=== PATIENT | male | born 1965 | race American Indian/Alaskan Native ===

== ENCOUNTER 2017-01-18 03:05 | Inpatient (IN) | payer BC, MEDICAID ==
[2017-01-18] MEDS ORDERED: NACL 0.9% 1000 ML IV ONE (03:30)
--- NOTE | 2017-01-18 04:05 | Emergency Department Report ---
HPI - General Chief Complaint: Fever Time Seen by Provider: 01/18/17 03:37 - HPI HPI: Room 22 The patient is a 51-year-old male presenting with a chief complaint of fever or weakness. The patient has a history of metastatic colon CA and last received chemotherapy 12/31/2016. Family states he was diagnosed with an abdominal abscess 01/10/2017. Today the patient found to be febrile with a temperature of 39.6C per . The patient appeared weak so she brought him into the emergency department for evaluation. There is been no history of nausea vomiting or diarrhea. There is no history of cough. The patient currently denies any complaints Location: [see above] Duration: [see above] Quality: [see above] Severity: [see above] Modifying factors: [see above] Context: [see above] Mode of transportation: [not driving] ED Past Medical Hx - Past Medical History Previous Medical History?: Yes Hx Liver Disease: Yes (LIVER METS) Hx of Cancer: Yes (Colon, Bone CA) - Surgical History Past Surgical History?: Yes - Family History Family history: no significant - Social History Smoking Status: Never Smoker Substance Use Type: Alcohol (none x May 2016) - Medications Home Medications: Home Medications Medication Instructions Recorded Confirmed Last Taken Type Pantoprazole [Protonix TAB] 40 mg PO QDAY #30 tablet 07/07/16 08/26/16 08/24/16 Rx Polyethylene Glycol 3350 [Miralax 17 gm PO QDAY #30 powd.pack 07/07/16 08/23/16 Unknown Rx 3350] Multivitamin with Iron 1 each PO DAILY #30 tablet 07/08/16 08/26/16 08/25/16 Rx [Multivitamins with Iron] HYDROcodone/APAP 10-325 [Faber 1 each PO Q6HR PRN 07/26/16 08/26/16 08/26/16 00: 30 History 10/325] Metoprolol [Lopressor TAB] 25 mg PO BID #60 tablet 08/08/16 08/26/16 08/25/16 20 :00 Rx HYDROcodone/APAP 5-325 [Faber 1 - 2 each PO Q4HR PRN #30 tablet 08/26/16 Unknown Rx 5/325] Ranitidine HCl [Zantac 150 MG TAB] 150 mg PO BID 08/26/16 08/26/16 08/25/16 History ED Review of Systems ROS: Stated complaint: WEAKNESS/CONFUSED Other details as noted in HPI Comment: All other systems reviewed and negative Constitutional: fever, weakness Eyes: denies: eye pain, eye discharge, vision change ENT: denies: ear pain, throat pain Respiratory: denies: cough, shortness of breath, wheezing Cardiovascular: denies: chest pain, palpitations Endocrine: no symptoms reported Gastrointestinal: abdominal pain. denies: nausea, vomiting, diarrhea Genitourinary: denies: urgency, dysuria Musculoskeletal: denies: back pain, joint swelling, arthralgia Skin: denies: rash, lesions Neurological: denies: headache, weakness, paresthesias Psychiatric: denies: anxiety, depression Hematological/Lymphatic: denies: easy bleeding, easy bruising Physical Exam - Physical Exam Vital Signs: Vital Signs 01/18/17 01/18/17 01/18/17 03:13 03:15 03:17 Temperature 99.0 F Pulse Rate 119 H 118 H 127 H Respiratory 26 H 24 16 Rate Blood Pressure 90/49 85/50 O2 Sat by Pulse 97 96 90 Oximetry 01/18/17 03:30 Temperature Pulse Rate 111 H Respiratory 21 Rate Blood Pressure 77/42 O2 Sat by Pulse 97 Oximetry Physical Exam: GENERAL: The patient is a thin-appearing male lying on stretcher not appearing to be in acute distress HEENT: Normocephalic. Atraumatic. Extraocular motions are intact. NECK: Supple. Trachea midline CHEST/LUNGS: Clear to auscultation. There is no respiratory distress noted. HEART/CARDIOVASCULAR: Regular. There is no tachycardia. There is no gallop rub or murmur. ABDOMEN: Abdomen is slightly tender in the left periphery. There were abdomen feels indurated possibly indicating hepatosplenomegaly. There is no rebound. Patient has normal bowel sounds. There is no abdominal distention. SKIN: There is no rash. There is no edema. There is no diaphoresis. NEURO: The patient is awake, alert, and oriented. The patient is cooperative. The patient has normal speech MUSCULOSKELETAL: There is no evidence of acute injury. ED Course Vital Signs 01/18/17 01/18/17 01/18/17 03:13 03:15 03:17 Temperature 99.0 F Pulse Rate 119 H 118 H 127 H Respiratory 26 H 24 16 Rate Blood Pressure 90/49 85/50 O2 Sat by Pulse 97 96 90 Oximetry 01/18/17 03:30 Temperature Pulse Rate 111 H Respiratory 21 Rate Blood Pressure 77/42 O2 Sat by Pulse 97 Oximetry ED Medical Decision Making - Lab Data Result diagrams: 01/18/17 03:30 01/18/17 03:30 Laboratory Tests 01/18/17 01/18/17 01/18/17 03:10 03:30 03:30 WBC 16.6 H RBC 3.27 L Hgb 9.1 L Hct 28.1 L MCV 86 MCH 28 MCHC 32 RDW 18.6 H Plt Count 307 Lymph % (Auto) Shovel Engineer [place] % (Auto) Shovel Engineer Eos % (Auto) Shovel Engineer Baso % (Auto) Shovel Engineer Lymph # Shovel Engineer [place] # Shovel Engineer Eos # Shovel Engineer Baso # Shovel Engineer Seg Neutrophils % Shovel Engineer Seg Neutrophils # Shovel Engineer Sodium 135 L Potassium 5.0 Chloride 90.0 L Carbon Dioxide 25 Anion Gap 25 BUN 25 H Creatinine 1.9 H Estimated GFR 45 BUN/Creatinine Ratio 13.15 Glucose 54 L POC Glucose 53 L Lactic Acid Calcium 10.9 H Total Bilirubin 1.50 H AST 109 H ALT 29 Alkaline Phosphatase 225 H Troponin T < 0.010 C-Reactive Protein 40.40 H Total Protein 8.2 Albumin 2.6 L Albumin/Globulin Ratio 0.5 Lipase 10 L 01/18/17 03:30 WBC RBC Hgb Hct MCV MCH MCHC RDW Plt Count Lymph % (Auto) [place] % (Auto) Eos % (Auto) Baso % (Auto) Lymph # [place] # Eos # Baso # Seg Neutrophils % Seg Neutrophils # Sodium Potassium Chloride Carbon Dioxide Anion Gap BUN Creatinine Estimated GFR BUN/Creatinine Ratio Glucose POC Glucose Lactic Acid 4.70 H* Calcium Total Bilirubin AST ALT Alkaline Phosphatase Troponin T C-Reactive Protein Total Protein Albumin Albumin/Globulin Ratio Lipase - Radiology Data Radiology results: image reviewed (chest x-ray, CT abdomen and pelvis) interpreted by me: Chest x-ray-no focal infiltrates, no pneumothorax - Differential Diagnosis sepsis, symptomatic anemia, neutropenic fever Critical care attestation.: If time is entered above; I have spent that time in minutes in the direct care of this critically ill patient, excluding procedure time. ED Disposition Clinical Impression: Colon cancer, Leukocytosis, Hypotension, Acute renal failure Disposition: OP ADMIT IP TO THIS HOSP Is pt being admited?: Yes Does the pt Need Aspirin: No Condition: Serious Referrals: PRIMARY CARE, [Primary Care Provider] - 3-5 Days Time of Disposition: 05:58 (awaiting CT abdomen and pelvis results)
[2017-01-18 04:13] LABS: Hematocrit 28.1 % (35.5-45.6); Hemoglobin 9.1 gm/dl (11.8-15.2); Mean Corpuscular HGB Conc 32 % (32-34); Mean Corpuscular Hemoglobin 28 pg (28-32); Mean Corpuscular Volume 86 fl (84-94); Platelet Count 307 K/mm3 (140-440); Red Blood Count 3.27 M/mm3 (3.65-5.03); Red Cell Distribution Width 18.6 % (13.2-15.2); White Blood Count 16.6 K/mm3 (4.5-11.0)
[2017-01-18 04:46] LABS: Alanine Aminotransferase 29 units/L (7-56); Albumin 2.6 g/dL (3.9-5); Albumin/Globulin Ratio 0.5 %; Alkaline Phosphatase 225 units/L (35-129); Anion Gap 25 mmol/L; BUN/Creatinine Ratio 13.15; Blood Urea Nitrogen 25 mg/dL (9-20); Calcium 10.9 mg/dL (8.4-10.2); Carbon Dioxide 25 mmol/L (22-30); Glucose 54 mg/dL (75-100); Lipase 10 units/L (13-60); Sodium 135 mmol/L (137-145); Total Protein 8.2 g/dL (6.3-8.2)
[2017-01-18] MEDS ORDERED: ZOSYN/NS 3.375GM/50ML 3.375 GM/50 ML BAG IV ONE (04:51)
[2017-01-18 05:49] LABS: LA REFLEX Y
[2017-01-18] MEDS ORDERED: LEVOPHED DRIP 4 MG/NS 250 ML 4 MG/250 ML BAG IV PRN (05:53)
--- NOTE | 2017-01-18 06:01 | Admit Criteria Form ---
Admission Criteria Documentation: HEMODYNAMIC INSTABILITY Clinical Indications for Inpatient Care (levelock/check or initial the applicable condition/criteria) Ongoing inpatient care may be indicated for hemodynamic instability as indicated by 1 or more of the following(1)(2)(3)(4)(10)(16)(17)(18)(19(32)(35): [X ]I) New hypotension [ ]II) Symptomatic Tachycardia or Bradycardia unresponsive to treatment (eg analgesia, fluids [ X]III) Inadequate perfusion as indicated by 1 or more of the following: [X ]a) Lactic acidosis, with lactic acid greater than 18 mg/dL (2 mmol /L) or base excess < -5mEq/L(36) [ ]b) New abnormal capillary refill (longer than 3 seconds) [ ]c) Altered mental status that is severe or persistent [ ]d) Reduced urine output [ ]lV) Orthostatic vital sign changes that are symptomatic and unresponsive to treatment (eg, fluids) (37)(38) [ ]V) Marked hemodynamic change from baseline (eg, SBP 20 mm Hg below patient' s usual pressure) [ ]Vl) IV inotropic or vasopressor medication required(39) Extended stay beyond goal length of stay for primary condition may be needed until ALL of the following are present(1)(2)(3)(4)(10)(16)(17): [ ]a) Heart rate > 60 and < 100 beats per minute or patient is clinically stable at current rate (eg, baseline) [ ]b) SBP >100 mm Hg and <160 mm Hg or patient is clinically stable at current pressure (eg, baseline) [ ]c) DBP greater than 50 mm Hg and less than 100 mm Hg or patient is clinically stable at current pressure (eg, baseline) [ ]d) Urine output greater than 0.5 mL/kg per hour [ ]e) Room air oxygen saturation 90% or greater or at baseline [ ]f) Orthostatic vital sign changes absent, asymptomatic, at baseline, or manageable at lower level of care[B] [ ]g) Medical comorbidities manageable at lower level of care The original [employer] content created by Adrianne Saba has been revised. The portions of the content which have been revised are identified through the use of italic text or in bold, and Adrianne Saba has neither reviewed nor approved the modified material. All other unmodified content is copyright [facility]. Please see references footnoted in the original [facility] edition 2017 Admission Criteria Met: Yes
[2017-01-18 06:13] LABS: Anisocytosis 1+; Basophils % (Manual) 0 % (0.0-1.8); Blastocytes % (Manual) 0 %; Diff Status Complete; Eosinophils % (Manual) 0 % (0.0-4.3); Platelet Estimate Consistent w Auto
[2017-01-18] MEDS ORDERED: D50W (25GM) IV ONE (06:15)
[2017-01-18] MEDS ORDERED: VANCOMYCIN/NS 1 GM/250 ML 1 GM/250 ML BAG IV ONE ×2 (06:16→09:00)
--- NOTE | 2017-01-18 06:42 | Cat Scan Report ---
FINAL REPORT PROCEDURE: CT ABDOMEN PELVIS WO CON TECHNIQUE: Computerized axial tomography of the abdomen and pelvis was performed without intravenous contrast. This study is performed without intravascular contrast material and its sensitivity for abdominal and pelvic pathology, including neoplasms, inflammation, abscess, free fluid, thrombosis, arterial dissection and infarction, is reduced compared with a contrast enhanced study. HISTORY: hypotension, left abd pain. h/o intra-abd abscess COMPARISON: 08/05/2016 FINDINGS: Visualized lower thorax: There are bilateral lower lobe infiltrates.. Liver: Liver is significantly enlarged and filled with metastatic tumors. The appearance is similar to the previous examination.. Spleen: Spleen is enlarged. No discrete mass is seen.. Gallbladder and biliary system: Normal. Pancreas: Normal. Adrenals: Normal. Kidneys: There is a 2 centimeters cyst in the right kidney. There are no kidney stones. There is no hydronephrosis.. GI tract: There is thickening of the stomach wall suggesting gastritis. There is no mass. There is moderate stool the colon. There is currently no active diverticulitis or colitis. 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 This extends laterally and posteriorly from the left colon at location of previously identified perforation. Largest diameter of the abscess cavity is 17 millimeters and contains air.. Lymph nodes and mesentery: Normal. Vasculature: Normal. Bladder: Normal. Reproductive organs: Prostate is unremarkable.. Peritoneum: There is no ascites or free air.. Musculoskeletal structures: There is a lytic lesion in the right sacral ala unchanged from prior study.. Other: There is a left inguinal hernia containing nodular densities which could be enlarged lymph nodes. The appearance is unchanged from prior study.. 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 This extends laterally and posteriorly from the left colon at location of previously identified perforation. Largest diameter of the abscess cavity is 17 millimeters and contains air. Liver is significantly enlarged and filled with metastatic tumors. The appearance is similar to the previous examination.. Spleen is enlarged. No discrete mass is seen.. There is a 2 centimeters cyst in the right kidney. There are no kidney stones. There is no hydronephrosis.. There is a lytic lesion in the right sacral ala unchanged from prior study.. There is a left inguinal hernia containing nodular densities which could be enlarged lymph nodes. The appearance is unchanged from prior study.. There are bilateral lower lobe pulmonary infiltrates..
[2017-01-18 07:06] LABS: Bilirubin,Urine NEG (Negative); Blood,Urine NEG (Negative); Ketones,Urine TR mg/dL (Negative); Leukocyte Esterase,Urine TR (Negative); Mucus,Urine FEW /HPF; Nitrite,Urine NEG (Negative)
--- NOTE | 2017-01-18 07:28 | History and Physical Report ---
History of Present Illness Date of examination: 01/18/17 Date of admission: 01/18/17 Chief complaint: Fever and weakness. History of present illness: Patient is a 51-year-old male with hx of Metastatic colon CA s/p Colon resection , on Chemotherapy with last chemo on 12/31/16 presenting with fever and weakness. Patient is accompanied by the informs me that he has progressively declined healthwise. Patient was recently seen in follow-up abdominal pain at [facility] on 01/10/2017 was diagnosed with an abdominal abscess there was no intervention done at that time, sure if any antibiotics was given to the patient and discharge. The informs me that she did not want them doing any procedure because she wanted his primary surgeon Dr. Reed asked to see her. Unfortunately has continued to have worsening weakness and fever at home which was recorded at 39.6 but a . The patient is severely weak unable to answer any question except muttering a few words. They deny any diarrhea, nausea, vomiting, chest pain, headaches, shortness of breath or cough. Abdominal pain still persists this at 3/10 in intensity with no aggravating factors. The patient has been unable to eat due to poor appetite for the last 1 week. On admission to the ER patient was noted to have a blood sugar of 53. Systolic blood pressure was also noted to be in the mid 80s. ROS Constitutional: Fever, fatigue or weight loss and weakness. Skin: No rash. Eyes: No recent vision problems or eye pain. ENT: No congestion, ear pain, or sore throat. Endocrine: No thyroid problems. Cardiovascular: No chest pain. Respiratory: No cough, shortness of breath, congestion, or wheezing. Gastrointestinal: positive abdominal pain, No nausea, vomiting, or diarrhea. Genitourinary: No dysuria. Musculoskeletal: No joint swelling. Neurologic: No seizures. Hematologic: No unusual bruising or bleeding. Psychiatric: No psychiatric problems, hallucinations or depression. All other systems reviewed and otherwise negative. Past History Past Medical History: cancer (colon), other Past Surgical History: Other (colon resection) Social history: . denies: alcohol abuse, prescription drug abuse Family history: no significant family history Medications and Allergies Allergies Allergy/AdvReac Type Severity Reaction Status Date / Time No Known Allergies Allergy Unverified 07/03/16 11:00 Home Medications Medication Instructions Recorded Confirmed Last Taken Type Pantoprazole [Protonix TAB] 40 mg PO QDAY #30 tablet 07/07/16 08/26/16 08/24/16 Rx Polyethylene Glycol 3350 [Miralax 17 gm PO QDAY #30 powd.pack 07/07/16 08/23/16 Unknown Rx 3350] Multivitamin with Iron 1 each PO DAILY #30 tablet 07/08/16 08/26/16 08/25/16 Rx [Multivitamins with Iron] HYDROcodone/APAP 10-325 [[place] 1 each PO Q6HR PRN 07/26/16 08/26/16 08/26/16 00: 30 History 10/325] Metoprolol [Lopressor TAB] 25 mg PO BID #60 tablet 08/08/16 08/26/16 08/25/16 20 :00 Rx HYDROcodone/APAP 5-325 [[place] 1 - 2 each PO Q4HR PRN #30 tablet 08/26/16 Unknown Rx 5/325] Ranitidine HCl [Zantac 150 MG TAB] 150 mg PO BID 08/26/16 08/26/16 08/25/16 History Active Meds: Active Medications Norepinephrine (Levophed Drip 4 Mg/Ns 250 Ml) 4 mg in 250 mls @ 7.5 mls/hr IV TITR PRN; Protocol; 2 MCG/MIN PRN Reason: hypotension Last Admin: 01/18/17 06:10 Dose: 2 mcg/min, 7.5 mls/hr Vancomycin HCl (Vancomycin/Ns 1 Gm/250 Ml) 1 gm in 250 mls @ 167.007 mls/hr IV ONCE ONE PRN Reason: Protocol Stop: 01/18/17 07:45 Exam - Physical Exam Narrative exam: VITAL SIGNS: Reviewed. GENERAL: The patient appeared lethargic, markedly cachectic normally developed. Vital signs as documented. HEAD: No signs of head trauma. Temporal wasting EYES: Pupils are equal. Extraocular motions intact. EARS: Hearing grossly intact. MOUTH: Oropharynx is normal. NECK: No adenopathy, no JVD. CHEST: Chest with clear breath sounds bilaterally. No wheezes, rales, or rhonchi. CARDIAC: Regular rate and rhythm. S1 and S2, without murmurs, gallops, or rubs. VASCULAR: No Edema. Peripheral pulses normal and equal in all extremities. ABDOMEN: Scaphoid, Soft, without detectable tenderness. No rebound or guarding, and no masses palpated. Bowel Sounds normal. MUSCULOSKELETAL: Good range of motion of all major joints. Extremities without clubbing, cyanosis or edema. NEUROLOGIC EXAM: Alert and oriented x 3. No focal sensory or strength deficits. Speech normal. Follows commands. PSYCHIATRIC: Mood normal. SKIN: No rash or lesions. - Constitutional Vitals: Temp Pulse Resp BP Pulse Ox 98.9 F 91 H 19 98/61 98 01/18/17 06:30 01/18/17 06:45 01/18/17 06:45 01/18/17 06:45 01/18/17 06:45 Results - Labs CBC & Chem 7: 01/18/17 03:30 01/18/17 03:30 Labs: Laboratory Last Values WBC 16.6 K/mm3 (4.5-11.0) H 01/18/17 03:30 RBC 3.27 M/mm3 (3.65-5.03) L 01/18/17 03:30 Hgb 9.1 gm/dl (11.8-15.2) L 01/18/17 03:30 Hct 28.1 % (35.5-45.6) L 01/18/17 03:30 MCV 86 fl (84-94) 01/18/17 03:30 MCH 28 pg (28-32) 01/18/17 03:30 MCHC 32 % (32-34) 01/18/17 03:30 RDW 18.6 % (13.2-15.2) H 01/18/17 03:30 Plt Count 307 K/mm3 (140-440) 01/18/17 03:30 Lymph % (Auto) Assistant Administrator 01/18/17 03:30 Garza % (Auto) Assistant Administrator 01/18/17 03:30 Eos % (Auto) Assistant Administrator 01/18/17 03:30 Baso % (Auto) Assistant Administrator 01/18/17 03:30 Lymph # Assistant Administrator 01/18/17 03:30 Garza # Assistant Administrator 01/18/17 03:30 Eos # Assistant Administrator 01/18/17 03:30 Baso # Assistant Administrator 01/18/17 03:30 Add Manual Diff Complete 01/18/17 03:30 Total Counted 100 01/18/17 03:30 Seg Neutrophils % Assistant Administrator 01/18/17 03:30 Seg Neuts % (Manual) 48.0 % (40.0-70.0) 01/18/17 03:30 Band Neutrophils % 16.0 % 01/18/17 03:30 Lymphocytes % (Manual) 12.0 % (13.4-35.0) L 01/18/17 03:30 Reactive Lymphs % (Man) 0 % 01/18/17 03:30 Monocytes % (Manual) 24.0 % (0.0-7.3) H 01/18/17 03:30 Eosinophils % (Manual) 0 % (0.0-4.3) 01/18/17 03:30 Basophils % (Manual) 0 % (0.0-1.8) 01/18/17 03:30 Metamyelocytes % 0 % 01/18/17 03:30 Myelocytes % 0 % 01/18/17 03:30 Promyelocytes % 0 % 01/18/17 03:30 Blast Cells % 0 % 01/18/17 03:30 Nucleated RBC % Not Reportable 01/18/17 03:30 Seg Neutrophils # Assistant Administrator 01/18/17 03:30 Seg Neutrophils # Man 8.0 K/mm3 (1.8-7.7) H 01/18/17 03:30 Band Neutrophils # 2.7 K/mm3 01/18/17 03:30 Lymphocytes # (Manual) 2.0 K/mm3 (1.2-5.4) 01/18/17 03:30 Abs React Lymphs (Man) 0.0 K/mm3 01/18/17 03:30 Monocytes # (Manual) 4.0 K/mm3 (0.0-0.8) H 01/18/17 03:30 Eosinophils # (Manual) 0.0 K/mm3 (0.0-0.4) 01/18/17 03:30 Basophils # (Manual) 0.0 K/mm3 (0.0-0.1) 01/18/17 03:30 Metamyelocytes # 0.0 K/mm3 01/18/17 03:30 Myelocytes # 0.0 K/mm3 01/18/17 03:30 Promyelocytes # 0.0 K/mm3 01/18/17 03:30 Blast Cells # 0.0 K/mm3 01/18/17 03:30 WBC Morphology Not Reportable 01/18/17 03:30 Hypersegmented Neuts Not Reportable 01/18/17 03:30 Hyposegmented Neuts Not Reportable 01/18/17 03:30 Hypogranular Neuts Not Reportable 01/18/17 03:30 Smudge Cells Not Reportable 01/18/17 03:30 Toxic Granulation Not Reportable 01/18/17 03:30 Toxic Vacuolation Not Reportable 01/18/17 03:30 Dohle Bodies Not Reportable 01/18/17 03:30 Pelger-Huet Anomaly Not Reportable 01/18/17 03:30 Reid Rods Not Reportable 01/18/17 03:30 Platelet Estimate Consistent w auto 01/18/17 03:30 Clumped Platelets Not Reportable 01/18/17 03:30 Plt Clumps, EDTA Not Reportable 01/18/17 03:30 Large Platelets Not Reportable 01/18/17 03:30 Giant Platelets Not Reportable 01/18/17 03:30 Platelet Satelliting Not Reportable 01/18/17 03:30 Plt Morphology Comment Not Reportable 01/18/17 03:30 RBC Morphology Not Reportable 01/18/17 03:30 Dimorphic RBCs Not Reportable 01/18/17 03:30 Polychromasia Not Reportable 01/18/17 03:30 Hypochromasia Not Reportable 01/18/17 03:30 Poikilocytosis Not Reportable 01/18/17 03:30 Anisocytosis 1+ 01/18/17 03:30 Microcytosis Not Reportable 01/18/17 03:30 Macrocytosis Not Reportable 01/18/17 03:30 Spherocytes Not Reportable 01/18/17 03:30 Pappenheimer Bodies Not Reportable 01/18/17 03:30 Sickle Cells Not Reportable 01/18/17 03:30 Target Cells Not Reportable 01/18/17 03:30 Tear Drop Cells Not Reportable 01/18/17 03:30 Ovalocytes Not Reportable 01/18/17 03:30 Helmet Cells Not Reportable 01/18/17 03:30 [place] Bodies Not Reportable 01/18/17 03:30 [place] Rings Not Reportable 01/18/17 03:30 [place] Cells Not Reportable 01/18/17 03:30 Bite Cells Not Reportable 01/18/17 03:30 Crenated Cell Not Reportable 01/18/17 03:30 Elliptocytes Not Reportable 01/18/17 03:30 Acanthocytes (Spur) Not Reportable 01/18/17 03:30 Rouleaux Not Reportable 01/18/17 03:30 Hemoglobin C Crystals Not Reportable 01/18/17 03:30 Schistocytes Not Reportable 01/18/17 03:30 Malaria parasites Not Reportable 01/18/17 03:30 Neal Bodies Not Reportable 01/18/17 03:30 Hem Pathologist Commnt No 01/18/17 03:30 Sodium 135 mmol/L (137-145) L 01/18/17 03:30 Potassium 5.0 mmol/L (3.6-5.0) 01/18/17 03:30 Chloride 90.0 mmol/L (98-107) L 01/18/17 03:30 Carbon Dioxide 25 mmol/L (22-30) 01/18/17 03:30 Anion Gap 25 mmol/L 01/18/17 03:30 BUN 25 mg/dL (9-20) H 01/18/17 03:30 Creatinine 1.9 mg/dL (0.8-1.5) H 01/18/17 03:30 Estimated GFR 45 ml/min 01/18/17 03:30 BUN/Creatinine Ratio 13.15 % 01/18/17 03:30 Glucose 54 mg/dL (75-100) L 01/18/17 03:30 POC Glucose 53 (70-105) L 01/18/17 03:10 Lactic Acid 4.70 mmol/L (0.7-2.0) H* 01/18/17 03:30 Calcium 10.9 mg/dL (8.4-10.2) H 01/18/17 03:30 Total Bilirubin 1.50 mg/dL (0.1-1.2) H 01/18/17 03:30 AST 109 units/L (5-40) H 01/18/17 03:30 ALT 29 units/L (7-56) 01/18/17 03:30 Alkaline Phosphatase 225 units/L (35-129) H 01/18/17 03:30 Troponin T < 0.010 ng/mL (0.00-0.029) 01/18/17 03:30 C-Reactive Protein 40.40 mg/dL (0.00-1.30) H 01/18/17 03:30 Total Protein 8.2 g/dL (6.3-8.2) 01/18/17 03:30 Albumin 2.6 g/dL (3.9-5) L 01/18/17 03:30 Albumin/Globulin Ratio 0.5 % 01/18/17 03:30 Lipase 10 units/L (13-60) L 01/18/17 03:30 Urine Color Delia (Yellow) 01/18/17 06:49 Urine Turbidity Clear (Clear) 01/18/17 06:49 Urine pH 5.0 (5.0-7.0) 01/18/17 06:49 Ur Specific [place] 1.025 (1.003-1.030) 01/18/17 06:49 Urine Protein 100 mg/dl mg/dL (Negative) 01/18/17 06:49 Urine Glucose (UA) 50 mg/dL (Negative) 01/18/17 06:49 Urine Ketones Tr mg/dL (Negative) 01/18/17 06:49 Urine Blood Neg (Negative) 01/18/17 06:49 Urine Nitrite Neg (Negative) 01/18/17 06:49 Urine Bilirubin Neg (Negative) 01/18/17 06:49 Urine Urobilinogen 2.0 mg/dL (<2.0) 01/18/17 06:49 Ur Leukocyte Esterase Tr (Negative) 01/18/17 06:49 Urine WBC (Auto) 11.0 /HPF (0.0-6.0) H 01/18/17 06:49 Urine RBC (Auto) 4.0 /HPF (0.0-6.0) 01/18/17 06:49 U Epithel Cells (Auto) 1.0 /HPF (0-13.0) 01/18/17 06:49 Urine Mucus Few /HPF 01/18/17 06:49 Assessment and Plan Assessment and plan: Patient is a 51-year-old male with hx of Metastatic colon CA s/p Colon resection , on Chemotherapy with last chemo on 12/31/16 presenting with fever and weakness. Patient is accompanied by the informs me that he has progressively declined healthwise. Patient was recently seen in follow-up abdominal pain at [facility] on 01/10/2017 was diagnosed with an abdominal abscess there was no intervention done at that time, sure if any antibiotics was given to the patient and discharge. The informs me that she did not want them doing any procedure because she wanted his primary surgeon Dr. Reed asked to see her. Unfortunately has continued to have worsening weakness and fever at home which was recorded at 39.6 but a . The patient is severely weak unable to answer any question except muttering a few words. They deny any diarrhea, nausea, vomiting, chest pain, headaches, shortness of breath or cough. Abdominal pain still persists this at 3/10 in intensity with no aggravating factors. The patient has been unable to eat due to poor appetite for the last 1 week. On admission to the ER patient was noted to have a blood sugar of 53. Systolic blood pressure was also noted to be in the mid 80s. * Sepsis possible secondary to Abdominal Abscess, UTI * Septic Shock * Abdominal Abscess * Peritoneal irritation eval for Possible Peritonitis * Acute cystitis * Metastatic Colon Cancer * Acute Kidney Failure secondary vasomotor nephropathy baseline 0.5 today elevated to 1.9 * Dehydration * Anemia secondary to colon Ca * Hypoglycemia * Failure to thrive * Severe Protein calorie malnutrition * Poor PO intake * ?Sacral Abscess Plan * Admit patient to the intensive care unit, access patient's port for pressor infusion which has not even started * We'll give patient additional 2 L of fluid and start patient on maintenance D5 normal saline for better blood glucose control * Stat vancomycin and Zosyn, check blood culture, urine culture sputum cultures * Obtain pro-calcitonin if possible * Surgical consult, serial abdominal exam if abscess is worsening we'll consider also CT-guided drainage. * Template Clerk, hematology oncologist, and infectious diseases consult * Perez for adequate urinary output documentation if no improvement in renal status will obtain renal ultrasound and also nephrology input. * Pain control * If patient continues to have a poor by mouth intake may need insertion of NG tube for enteral feed * Obtain records from [facility] * Plan discussed with patient's sister who is a nurse and also with the patient' s spouse and the patient * DVT and GI prophylaxis The high probability of a clinically significant, sudden or life threatening deterioration of the [cardiovascula, GI, ID] system(s) required my full and direct attention, intervention and personal management. The aggregate critical care time was [40] minutes. This time is in addition to time spent performing reported procedures but includes the following: [x] Data Review and interpretation [x] Patient assessment and monitoring of vital signs [x] Documentation [x] Medication orders and management Advance Directives: Yes Plan of care discussed with patient/family: Yes
[2017-01-18] MEDS ORDERED: TYLENOL PO PRN (07:29)
[2017-01-18] MEDS ORDERED: VANCOMYCIN VIAL IV ONE (07:29)
[2017-01-18] MEDS ORDERED: NACL 0.9% 1000 ML 2,000 ML IV ONE (07:38)
[2017-01-18] MEDS ORDERED: VANCOMYCIN PHARMACY TO DOSE IV SCH (08:00)
[2017-01-18] MEDS ORDERED: BENADRYL ONE (09:16)
--- NOTE | 2017-01-18 09:50 | Event Note ---
Date: 01/18/17 This is an unfortunate 51 year old male s/p left colon resection and liver bx at [facility] by Dr. 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 The patient presents with hypotension, and an elevated WBC and is requiring pressor support , apparently he also has bone mets. This case represents advanced end stage/ terminal dz and there is nothing to offer surgically at this present time, consideration can be given to CT drainage, however the abcess is less than 3 cm and does not usually med requirements for CT drainage. A tragic case really, Hospice care really should be at least entertained althought the family and patient may not be ready for it given his young age. However, aggressive measures really represent futile care in my opinion. I have no idea if terminal care discussions have been carried out with the family by the Oncologist.
--- NOTE | 2017-01-18 09:59 | XRay Report ---
AP CHEST: HISTORY: Fever, sepsis Compared to 08/08/16. There is poor inspiration. Grossly, the lungs are clear. No pleural effusion or pneumothorax. Heart size is unremarkable. Right [id number] is in good position. IMPRESSION: Unremarkable AP chest.
[2017-01-18] MEDS: ZOSYN/NS 2.25 GM/50ML 2.25 GM/50 ML BAG IV SCH ×4 (11:09→23:39)
[2017-01-18] MEDS: MIRALAX 3350 PO SCH (11:22)
[2017-01-18] MEDS: D5NS 1,000 ML IV SCH (12:30)
[2017-01-18] MEDS ORDERED: ZOSYN/NS 4.5GM/100ML 4.5 GM/100 ML VIAL IV SCH (14:00)
[2017-01-18 14:35] LABS: ISTAT Base Excess 0; ISTAT HCO3 25.3; ISTAT PH 7.377 (7.35-7.45); ISTAT PO2 87 (80-105); ISTAT SO2 96; ISTAT TCO2 27
--- NOTE | 2017-01-18 16:18 | Consultation ---
History of Present Illness Consult date: 01/18/17 Requesting physician: NOHEMY KAUFFMAN Reason for consult: other (Severe Sepsis / Septic Shock) History of present illness: PULMONARY/CCM CONSULT NOTE Full dictation # [id number]) Please see dictated notes for full details Past History Past Medical History: cancer (colon), other Past Surgical History: Other (colon resection) Social history: . denies: alcohol abuse, prescription drug abuse Family history: no significant family history Medications and Allergies Allergies Allergy/AdvReac Type Severity Reaction Status Date / Time No Known Allergies Allergy Unverified 07/03/16 11:00 Home Medications Medication Instructions Recorded Confirmed Last Taken Type Pantoprazole [Protonix TAB] 40 mg PO QDAY #30 tablet 07/07/16 08/26/16 08/24/16 Rx Polyethylene Glycol 3350 [Miralax 17 gm PO QDAY #30 powd.pack 07/07/16 08/23/16 Unknown Rx 3350] Multivitamin with Iron 1 each PO DAILY #30 tablet 07/08/16 08/26/16 08/25/16 Rx [Multivitamins with Iron] HYDROcodone/APAP 10-325 [[place] 1 each PO Q6HR PRN 07/26/16 08/26/16 08/26/16 00: 30 History 10/325] Metoprolol [Lopressor TAB] 25 mg PO BID #60 tablet 08/08/16 08/26/16 08/25/16 20 :00 Rx HYDROcodone/APAP 5-325 [[place] 1 - 2 each PO Q4HR PRN #30 tablet 08/26/16 Unknown Rx 5/325] Ranitidine HCl [Zantac 150 MG TAB] 150 mg PO BID 08/26/16 08/26/16 08/25/16 History Active Meds: Active Medications Acetaminophen (Tylenol) 650 mg PO Q6H PRN PRN Reason: Pain, Mild (1-3) Hydromorphone HCl (Dilaudid) 0.25 mg IV Q4H PRN PRN Reason: Pain, Moderate (4-6) Norepinephrine (Levophed Drip 4 Mg/Ns 250 Ml) 4 mg in 250 mls @ 7.5 mls/hr IV TITR PRN; Protocol; 2 MCG/MIN PRN Reason: hypotension Last Titration: 01/18/17 07:10 Dose: 4 mcg/min, 15 mls/hr Dextrose/Sodium Chloride (D5ns) 1,000 mls @ 150 mls/hr IV DIRECT MIRIAM Piperacillin Sod/Tazobactam Sod (Zosyn/Ns 2.25 Gm/50ml) 2.25 gm in 50 mls @ 100 mls/hr IV Q6H [facility] Last Admin: 01/18/17 11:09 Dose: Not Given Vancomycin HCl 750 mg/ Sodium (Chloride) 265 mls @ 166.667 mls/hr IV Q24H [facility] Polyethylene Glycol (Miralax 3350) 17 gm PO QDAY [facility] Last Admin: 01/18/17 11:22 Dose: Not Given Vancomycin HCl (Vancomycin Pharmacy To Dose) 1 each IV PKCONSULT [facility] PRN Reason: Protocol Physical Examination Vital signs: Vital Signs Pulse Resp Pulse Ox 119 H 26 H 97 01/18/17 03:13 01/18/17 03:13 01/18/17 03:13 Results - Laboratory Findings CBC and BMP: 01/18/17 03:30 01/18/17 03:30 ABG POC ABG pH 7.377 (7.35-7.45) 01/18/17 14:25 POC ABG pCO2 43.0 (35-45) 01/18/17 14:25 POC ABG pO2 87 (80-105) 01/18/17 14:25 POC ABG HCO3 25.3 01/18/17 14:25 POC ABG Total CO2 27 01/18/17 14:25 POC ABG O2 Sat 96 01/18/17 14:25
--- NOTE | 2017-01-18 17:07 | Event Note ---
Date: 01/18/17 Pt seen, I have really nothing else to add, Hospice evaluation seems appropriate , is not present, patient's sister is in room at present speaking with Dr. Kowalski
[2017-01-19 04:34] LABS: Hematocrit 25.8 % (35.5-45.6); Hemoglobin 8.1 gm/dl (11.8-15.2); Mean Corpuscular HGB Conc 32 % (32-34); Mean Corpuscular Hemoglobin 27 pg (28-32); Mean Corpuscular Volume 87 fl (84-94); Platelet Count 248 K/mm3 (140-440); Red Blood Count 2.97 M/mm3 (3.65-5.03); Red Cell Distribution Width 19.6 % (13.2-15.2); White Blood Count 11.9 K/mm3 (4.5-11.0)
--- NOTE | 2017-01-19 04:38 | Consultation ---
CONSULTING PHYSICIAN: Dr. Pascal. REASON FOR CONSULTATION: Sepsis syndrome and hypotension. CHIEF COMPLAINT AND HISTORY OF PRESENT ILLNESS: The patient is a 51-year-old -[place] male with past medical history significant in this context for a diagnosis of metastatic colon cancer reportedly metastasized to the bone and the liver, came into the Emergency Room complaining of fever, weakness, generalized malaise. He apparently had been diagnosed with abdominal abscess, recently, according to his sister who is also in a medical professional I believe she is a nurse. He was seen at the [facility] and we were told that there was no need for surgical intervention, they were going to treat him with antibiotics for the abscess. He went home, but then again began to feel sick and was brought into the hospital here, he had a fever about 39.6 degrees centigrade according to his relatives. He was evaluated in the Emergency Room. He was amongst other things hypotensive. He was started on vasopressors in the form of Levophed, hence the reason for the consult. When I stopped by to see him, he was resting in bed peacefully. He denied any acute chest pains. He denied any cough or expectorations. Denies any abdominal pain that is uncontrolled. Denied any gross hematochezia. Denied any melena. This really is as much of the history of presentation as I have. He is not a current tobacco smoker. PAST MEDICAL HISTORY: Significant for metastatic colon cancer. PAST SURGICAL HISTORY: Status post colon resection. MEDICATIONS: He was on at the time I stopped by to see him, according to the medication administration record included the following: Tylenol 650 mg p.o. q. 6. hours p.r.n. mild pain and fever. Dilaudid 0.25 mg IV q. 4 hours p.r.n. moderate pain, Levophed drip had been going at 2 mcg per minute, Zosyn 2.25 grams IV q.6 hours, MiraLax 17 grams p.o. daily, vancomycin 750 mg IV daily. ALLERGIES: No known drug allergies. DIET: Thin gentleman, bordering on being cachectic since I have last seen him, he has lost about 10 pounds or more. FAMILY AND SOCIAL HISTORY: Lives in the community. No current alcohol, tobacco, or illicit drug use or abuse. He is . Family history otherwise noncontributory. REVIEW OF SYSTEMS: No loss of consciousness. No new onset seizures. No new onset focal weakness. No gross hematochezia or melena. No gross hematuria or dysuria. No hematemesis. No hemoptysis. He denies palpitations. Complete review of systems is obtained. Pertinent positives and/or negatives as in body of history above, otherwise they are noncontributory. PHYSICAL EXAMINATION: VITAL SIGNS: On examination at presentation, he had low grade fever of 99.0 Fahrenheit, pulse was 119, respiratory rate was 26, blood pressure was 90/49, oxygen sats were 96%, inspired oxygen concentration was not recorded, blood pressure dropped to low of about 77 systolics. HEAD, EYES, EARS, NOSE AND THROAT: Pupils are equal, round, about 2 mm, reactive to light. Extraocular muscle movements appeared intact. Oropharynx is a Mallampati #2 oropharynx with mild oropharyngeal pallor, grossly no palpable lymph nodes in the supraclavicular or submandibular lymph node chains. LUNGS: Auscultation of both lung angel significant only for diminished bibasilar air entry. No wheezing. HEART: Heart sounds 1 and 2 are heard. They were regular in rate and rhythm at the time of my evaluation. ABDOMEN: Soft. Bowel sounds are positive, but hypoactive, mildly tender in the epigastric. EXTREMITIES: Without overt digital clubbing, cyanosis or pedal edema. NEUROLOGIC: The exam was grossly nonfocal. LABORATORY DATA: From my review are as follows: Admission white cell count 16,600 with a hemoglobin of 9.1, hematocrit of 28.1 and platelet count of 307,000. No significant band forms reported. Arterial blood gas showed a pH of 7.38, pCO2 of 43, pO2 of 87; that was on 2 liters nasal cannula. Serum sodium was 135, potassium 5.0, chloride 90, bicarbonate 25, BUN 25, creatinine 1.9 and glucose was 53. Lactic acid level was 4.7, repeat lactate is down to 3.8. AST is up at 109, total bilirubin 1.5, heather phos ____. Otherwise, liver function tests essentially within normal limits. CRP is 40.4. Urinalysis, trace leukocyte esterase, 11 white cells per high power field. Blood cultures have no growth to date. Urine cultures are pending, that will be sent. Radiographic studies have been reviewed. I am pulling out the imaging I have reviewed the radiologist's interpretation. The main finding is on the CT of the abdomen and pelvis. 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 ASSESSMENT AND PLAN: We have an unfortunate middle-aged gentleman, who has metastatic cancer and his sister actually tells me that his oncologist has stopped chemotherapy and told him there is really nothing he can offer him at this point. From a respiratory standpoint, we will continue supplemental oxygen. Aspiration precautions will be maintained. We will follow him clinically. No acute indication for bronchodilators. From a cardiovascular standpoint, he is responding to volume resuscitation and being weaned off the Levophed. We will follow him clinically. We will target mean arterial pressures greater than or equal to about 60 to 65 mmHg. He will be placed on GI prophylaxis and aspiration precautions will be maintained. From an infectious disease standpoint, he has been pancultured. I will send urine cultures now and he is appropriately on broad-spectrum antibiotic therapy. Anti-infectives will ultimately be deescalated based on results of clinical and microbiologic data. Lactic acid level and CRP levels will be trended as necessary. I will leave it up to the surgeons to see if there is any indication for drainage procedure of any sort, but CT scan thankfully reports that the abscess cavity is actually getting smaller. From a GI and nutritional standpoint, oral nutrition will be the feeding modality of choice. Again, he is going to be on GI prophylaxis. From a [employer]IED [employer] standpoint, the exam is grossly nonfocal. No acute indication from neuro imaging. From a general and hospital healthcare maintenance standpoint, he is going to be on gastrointestinal and deep venous thrombosis prophylaxis. Flu and pneumonia vaccination will be per protocol. I have had a discussion with his sister and explained to her that they should please try and figure out what the patient would want for himself and make sure that substituted care is not given to him. The prognosis is poor and he needs to be made aware of this and make decisions regarding end of life care. They just listened, they will think about what I told; that would be the best way to describe their reply. Thank you very much for the consult Dr. Pascal. We will follow along. We will make further recommendations as picture progresses/becomes clearer. I should mention he has some areas of atelectasis in the bases of his lungs that apparently is a little bit better than the last CT scan we had here. He is critically ill on life-sustaining interventions including vasopressors at high risk for further deterioration including . We will observe him in the intensive care unit overnight. At this point, I have spent about 30 to 35 minutes of critical care time without overlap and excluding any procedural time that may be necessary. JOB# [id number] TJ/M[place]ISON
[2017-01-19 04:55] LABS: Alanine Aminotransferase 24 units/L (7-56); Albumin 2.1 g/dL (3.9-5); Albumin/Globulin Ratio 0.5 %; Alkaline Phosphatase 173 units/L (35-129); Anion Gap 21 mmol/L; BUN/Creatinine Ratio 17.77; Blood Urea Nitrogen 16 mg/dL (9-20); Calcium 9.4 mg/dL (8.4-10.2); Carbon Dioxide 21 mmol/L (22-30); Chloride 100.7 mmol/L (98-107); Glucose 85 mg/dL (75-100); Potassium 4.1 mmol/L (3.6-5.0); Sodium 139 mmol/L (137-145); Total Protein 6.6 g/dL (6.3-8.2)
[2017-01-19] MEDS: D5NS 1,000 ML IV SCH ×2 (08:13→18:04)
[2017-01-19] MEDS: ZOSYN/NS 2.25 GM/50ML 2.25 GM/50 ML BAG IV SCH (08:41)
[2017-01-19] MEDS: MIRALAX 3350 PO SCH (10:23)
[2017-01-19] MEDS ORDERED: VANCOMYCIN 750 MG in NACL 0.9% 250ML 250 ML IV SCH (11:00)
--- NOTE | 2017-01-19 15:04 | Consultation ---
History of Present Illness - Reason for Consult Consult date: 01/19/17 Septic Shock Requesting physician: NOHEMY KAUFFMAN - History of Present Illness Mr. Chavira is a 51-year-old man with colon cancer s/p colon resection and chemotherapy, last on . His course has been complicated by a colon perforation with abscess and a left perinephric fistula. He presented yesterday with weakness, hypotension and fever to > 102 [address] F. CXR was unremarkable. [address] abd/ pelv showed perinephric fistula and a smaller abscess at the colon. Blood and curine cultures were sent and broad spectrum antibiotics were started for possible septic shock. ID consultation is requested for management of septic shock and intra-abdominal abscess. Past History Past Medical History: cancer (colon), other Past Surgical History: Other (colon resection) Social history: . denies: alcohol abuse, prescription drug abuse Family history: no significant family history Medications and Allergies Allergies Allergy/AdvReac Type Severity Reaction Status Date / Time No Known Allergies Allergy Unverified 07/03/16 11:00 Home Medications Medication Instructions Recorded Confirmed Last Taken Type Pantoprazole [Protonix TAB] 40 mg PO QDAY #30 tablet 07/07/16 08/26/16 08/24/16 Rx Polyethylene Glycol 3350 [Miralax 17 gm PO QDAY #30 powd.pack 07/07/16 08/23/16 Unknown Rx 3350] Multivitamin with Iron 1 each PO DAILY #30 tablet 07/08/16 08/26/16 08/25/16 Rx [Multivitamins with Iron] HYDROcodone/APAP 10-325 [[place] 1 each PO Q6HR PRN 07/26/16 08/26/16 08/26/16 00: 30 History 10/325] Metoprolol [Lopressor TAB] 25 mg PO BID #60 tablet 08/08/16 08/26/16 08/25/16 20 :00 Rx HYDROcodone/APAP 5-325 [[place] 1 - 2 each PO Q4HR PRN #30 tablet 08/26/16 Unknown Rx 5/325] Ranitidine HCl [Zantac 150 MG TAB] 150 mg PO BID 08/26/16 08/26/16 08/25/16 History Active Meds: Active Medications Acetaminophen (Tylenol) 650 mg PO Q6H PRN PRN Reason: Pain, Mild (1-3) Hydromorphone HCl (Dilaudid) 0.25 mg IV Q4H PRN PRN Reason: Pain, Moderate (4-6) Norepinephrine (Levophed Drip 4 Mg/Ns 250 Ml) 4 mg in 250 mls @ 7.5 mls/hr IV TITR PRN; Protocol; 2 MCG/MIN PRN Reason: hypotension Last Titration: 01/18/17 07:10 Dose: 4 mcg/min, 15 mls/hr Dextrose/Sodium Chloride (D5ns) 1,000 mls @ 150 mls/hr IV DIRECT MIRIAM Last Admin: 01/19/17 08:13 Dose: 150 mls/hr Piperacillin Sod/Tazobactam Sod (Zosyn/Ns 4.5gm/100ml) 4.5 gm in 100 mls @ 200 mls/hr IV Q8HR MIRIAM Vancomycin HCl 750 mg/ Sodium (Chloride) 265 mls @ 166.667 mls/hr IV Q12HR MIRIAM Polyethylene Glycol (Miralax 3350) 17 gm PO QDAY MIRIAM Last Admin: 01/19/17 10:23 Dose: Not Given Vancomycin HCl (Vancomycin Pharmacy To Dose) 1 each IV PKCONSULT MIRIAM PRN Reason: Protocol Review of Systems All systems: negative Constitutional: fever, sweats, fatigue, weakness, no chills Cardiovascular: no chest pain, no palpitations, no shortness of breath Respiratory: no cough, no cough with sputum, no shortness of breath, no wheezing Gastrointestinal: abdominal pain, no nausea, no vomiting, no diarrhea Genitourinary Male: no dysuria, no hematuria Integumentary: no rash, no sores Physical Examination - Constitutional Vitals: Vital Signs Temp Pulse Resp BP Pulse Ox 99.4 F 103 H 30 H 127/69 97 01/19/17 12:52 01/19/17 11:50 01/19/17 11:50 01/19/17 11:50 01/19/17 11:50 Temperature -Last 24 Hours Temperature 99.4 F Temperature 98.5 F Temperature 100.3 F Temperature 102.6 F Temperature 99.3 F Temperature 98.9 F General appearance: Present: no acute distress, cachectic - EENT Eyes: Absent: scleral icterus (questionable mild icterus), conjunctival injection - Neck Neck: Present: supple - Respiratory Respiratory effort: normal Respiratory: bilateral: CTA, negative: rales - Cardiovascular Rhythm: regular (tachycardic) Heart Sounds: Present: S1 & S2 - Abdominal General gastrointestinal: Present: soft, non-tender, distended (mild), other ( healed verticalmidline scar) - Integumentary Integumentary: Absent: jaundice, rash - Musculoskeletal Musculoskeletal: generalized weakness - Psychiatric Psychiatric: appropriate mood/affect - Neurologic Neurologic: no focal deficits Results - Labs CBC & Chem 7: 01/19/17 04:15 01/19/17 04:15 Labs: Abnormal lab results 01/18/17 01/18/17 01/19/17 Range/Units 17:40 23:35 04:15 WBC 11.9 H (4.5-11.0) K/mm3 RBC 2.97 L (3.65-5.03) M/mm3 Hgb 8.1 L (11.8-15.2) gm/dl Hct 25.8 L (35.5-45.6) % MCH 27 L (28-32) pg RDW 19.6 H (13.2-15.2) % Carbon Dioxide (22-30) mmol/L POC Glucose 109 H 130 H (70-105) Lactic Acid (0.7-2.0) mmol/L AST (5-40) units/L Alkaline Phosphatase (35-129) units/L Albumin (3.9-5) g/dL 01/19/17 01/19/17 01/19/17 Range/Units 04:15 04:15 05:24 WBC (4.5-11.0) K/mm3 RBC (3.65-5.03) M/mm3 Hgb (11.8-15.2) gm/dl Hct (35.5-45.6) % MCH (28-32) pg RDW (13.2-15.2) % Carbon Dioxide 21 L (22-30) mmol/L POC Glucose 107 H (70-105) Lactic Acid 5.40 H* (0.7-2.0) mmol/L AST 79 H (5-40) units/L Alkaline Phosphatase 173 H (35-129) units/L Albumin 2.1 L (3.9-5) g/dL 01/19/17 Range/Units 12:19 WBC (4.5-11.0) K/mm3 RBC (3.65-5.03) M/mm3 Hgb (11.8-15.2) gm/dl Hct (35.5-45.6) % MCH (28-32) pg RDW (13.2-15.2) % Carbon Dioxide (22-30) mmol/L POC Glucose 135 H (70-105) Lactic Acid (0.7-2.0) mmol/L AST (5-40) units/L Alkaline Phosphatase (35-129) units/L Albumin (3.9-5) g/dL Microbiology 01/18/17 Unknown Urine,Clean Catch Urine Culture - Preliminary 01/18/17 07:04 Peripheral/Venous Blood Culture - Preliminary NO GROWTH AFTER 24 HOURS 01/18/17 07:44 Peripheral/Venous Blood Culture - Preliminary NO GROWTH AFTER 24 HOURS - Imaging and Cardiology Chest x-ray: report reviewed (unremarkable exam) CT scan - abdomen: report reviewed CT scan - pelvis: report reviewed Assessment and Plan - Patient Problems (1) Septic shock Current Visit: Yes Status: Acute Plan to address problem: Continue broad empiric coverage for now pending further micro data. (2) Colon cancer Current Visit: Yes Status: Acute Qualifiers: Colon location: unspecified part of colon Qualified Code(s): C18.9 - Malignant neoplasm of colon, unspecified Plan to address problem: Hospice referral planned.
[2017-01-19] MEDS: ZOSYN/NS 4.5GM/100ML 4.5 GM/100 ML VIAL IV SCH ×2 (18:03→23:34)
[2017-01-19] MEDS: VANCOMYCIN 750 MG in NACL 0.9% 250ML 250 ML IV SCH (22:46)
--- NOTE | 2017-01-19 22:50 | Progress Note ---
Assessment and Plan Patient resting on 2.5 litres O2.O2 saturation 97%. No complaint of chest pain, shortness of breath or cough. - Patient Problems (1) Acute febrile illness Current Visit: No Status: Acute Plan to address problem: Patient has metastatic colon CA. Intra abdominal abscess and Fistule reported on abdominal CAT scan. Patient is on zosyn and vancomycin. (2) Atelectasis of both lungs Current Visit: No Status: Acute Plan to address problem: Chest xray reported unremarkable. (3) Acute renal failure Current Visit: Yes Status: Acute Qualifiers: Acute renal failure type: A Plan to address problem: Management as per nephrology. (4) Septic shock Current Visit: Yes Status: Acute Plan to address problem: Patient is on Zosyn and vancomycin. (5) Colon cancer Current Visit: Yes Status: Acute Qualifiers: Colon location: unspecified part of colon Qualified Code(s): C18.9 - Malignant neoplasm of colon, unspecified Plan to address problem: Management as per Gastroenterology and oncology. Subjective Date of service: 01/19/17 Interval history: Patient resting on 2.5 litres O2.O2 saturation 97%. No complaint of chest pain, shortness of breath or cough. Objective Vital Signs - 12hr 01/19/17 01/19/17 01/19/17 10:50 11:00 11:10 Temperature Pulse Rate 115 H 113 H 109 H Respiratory 35 H 30 H 31 H Rate Blood Pressure 127/69 104/58 104/58 O2 Sat by Pulse 96 97 99 Oximetry 01/19/17 01/19/17 01/19/17 11:20 11:30 11:40 Temperature Pulse Rate 108 H 107 H 108 H Respiratory 28 H 28 H 32 H Rate Blood Pressure 127/69 127/69 127/69 O2 Sat by Pulse 100 100 98 Oximetry 01/19/17 01/19/17 01/19/17 11:50 12:52 16:00 Temperature 99.4 F 99.5 F Pulse Rate 103 H 107 H Respiratory 30 H 18 Rate Blood Pressure 127/69 105/67 O2 Sat by Pulse 97 98 Oximetry 01/19/17 01/19/17 16:06 19:49 Temperature Pulse Rate Respiratory Rate Blood Pressure O2 Sat by Pulse 97 97 Oximetry Constitutional: no acute distress, alert Eyes: non-icteric ENT: oropharynx moist Neck: supple, no lymphadenopathy Ascultation: Bilateral: clear Cardiovascular: regular rate and rhythm Gastrointestinal: hypoactive bowel sounds Integumentary: normal Extremities: no cyanosis, no edema Neurologic: normal mental status, non-focal exam, pupils equal and round, CN II- XII normal Psychiatric: mood appropriate CBC and BMP: 01/19/17 04:15 01/19/17 04:15 ABG, PT/INR, D-dimer: ABG POC ABG pH 7.377 (7.35-7.45) 01/18/17 14:25 POC ABG pCO2 43.0 (35-45) 01/18/17 14:25 POC ABG pO2 87 (80-105) 01/18/17 14:25 POC ABG HCO3 25.3 01/18/17 14:25 POC ABG Total CO2 27 01/18/17 14:25 POC ABG O2 Sat 96 01/18/17 14:25 Abnormal lab findings: Abnormal Labs 01/18/17 01/18/17 01/19/17 17:40 23:35 04:15 WBC 11.9 H RBC 2.97 L Hgb 8.1 L Hct 25.8 L MCH 27 L RDW 19.6 H Carbon Dioxide POC Glucose 109 H 130 H Lactic Acid AST Alkaline Phosphatase Albumin 01/19/17 01/19/17 01/19/17 04:15 04:15 05:24 WBC RBC Hgb Hct MCH RDW Carbon Dioxide 21 L POC Glucose 107 H Lactic Acid 5.40 H* AST 79 H Alkaline Phosphatase 173 H Albumin 2.1 L 01/19/17 01/19/17 01/19/17 12:19 16:10 21:14 WBC RBC Hgb Hct MCH RDW Carbon Dioxide POC Glucose 135 H 171 H 135 H Lactic Acid AST Alkaline Phosphatase Albumin Chest x-ray: report reviewed (Unremarkable AP chest.)
--- NOTE | 2017-01-19 22:57 | Progress Note ---
Assessment and Plan Assessment and plan: Patient is a 51-year-old male with hx of Metastatic colon CA s/p Colon resection , on Chemotherapy with last chemo on 12/31/16 presenting with fever and weakness. Patient is accompanied by the informs me that he has progressively declined healthwise. Patient was recently seen in follow-up abdominal pain at [facility] on 01/10/2017 was diagnosed with an abdominal abscess there was no intervention done at that time, sure if any antibiotics was given to the patient and discharge. The informs me that she did not want them doing any procedure because she wanted his primary surgeon Dr. Reed asked to see her. Unfortunately has continued to have worsening weakness and fever at home which was recorded at 39.6 but a . The patient is severely weak unable to answer any question except muttering a few words. They deny any diarrhea, nausea, vomiting, chest pain, headaches, shortness of breath or cough. Abdominal pain still persists this at 3/10 in intensity with no aggravating factors. The patient has been unable to eat due to poor appetite for the last 1 week. On admission to the ER patient was noted to have a blood sugar of 53. Systolic blood pressure was also noted to be in the mid 80s. 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 * Peritoneal irritation eval for Possible Peritonitis * Acute cystitis * Metastatic Colon Cancer * Acute Kidney Failure secondary vasomotor nephropathy baseline 0.5 today elevated to 1.9- resolved * Dehydration * Anemia secondary to colon Ca * Hypoglycemia * Failure to thrive * Severe Protein calorie malnutrition * Poor PO intake * ?Sacral Abscess Plan * Continue supportive care, Can transfer to [facility] * Continue vancomycin and Zosyn, check blood culture, urine culture sputum cultures * Surgical, Pulmonary and ID input noted * Perez for adequate urinary output documentation if no improvement in renal status will obtain renal ultrasound and also nephrology input. * Pain control * Obtain records from [facility] * Discussed extensively with patient and sister, Hospice requested. will discuss with oncologist in AM * DVT and GI prophylaxis * Poor prognosis History Interval history: Patient seen and examined today in no acute distress. ambulating, clinically improved compared to yesterday, still with intermittent fever. Hospitalist Physical - Physical exam Narrative exam: VITAL SIGNS: Reviewed. GENERAL: The patient appeared markedly cachectic normally developed. Vital signs as documented. HEAD: No signs of head trauma. Temporal wasting EYES: Pupils are equal. Extraocular motions intact. EARS: Hearing grossly intact. MOUTH: Oropharynx is normal. NECK: No adenopathy, no JVD. CHEST: Chest with clear breath sounds bilaterally. No wheezes, rales, or rhonchi. CARDIAC: Regular rate and rhythm. S1 and S2, without murmurs, gallops, or rubs. VASCULAR: No Edema. Peripheral pulses normal and equal in all extremities. ABDOMEN: Scaphoid, Soft, without detectable tenderness. No rebound or guarding, and no masses palpated. Bowel Sounds normal. MUSCULOSKELETAL: Good range of motion of all major joints. Extremities without clubbing, cyanosis or edema. NEUROLOGIC EXAM: Alert and oriented x 3. No focal sensory or strength deficits. Speech normal. Follows commands. PSYCHIATRIC: Mood normal. SKIN: No rash or lesions. - Constitutional Vitals: Temp Pulse Resp BP Pulse Ox 99.5 F 107 H 18 105/67 97 01/19/17 16:00 01/19/17 16:00 01/19/17 16:00 01/19/17 16:00 01/19/17 19:49 General appearance: Present: no acute distress, cachectic Results - Labs CBC & Chem 7: 01/19/17 04:15 01/19/17 04:15 Labs: Laboratory Last Values WBC 11.9 K/mm3 (4.5-11.0) H 01/19/17 04:15 RBC 2.97 M/mm3 (3.65-5.03) L 01/19/17 04:15 Hgb 8.1 gm/dl (11.8-15.2) L 01/19/17 04:15 Hct 25.8 % (35.5-45.6) L 01/19/17 04:15 MCV 87 fl (84-94) 01/19/17 04:15 MCH 27 pg (28-32) L 01/19/17 04:15 MCHC 32 % (32-34) 01/19/17 04:15 RDW 19.6 % (13.2-15.2) H 01/19/17 04:15 Plt Count 248 K/mm3 (140-440) 01/19/17 04:15 Lymph % (Auto) Car Detailer 01/18/17 03:30 [place] % (Auto) Car Detailer 01/18/17 03:30 Eos % (Auto) Car Detailer 01/18/17 03:30 Baso % (Auto) Car Detailer 01/18/17 03:30 Lymph # Car Detailer 01/18/17 03:30 [place] # Car Detailer 01/18/17 03:30 Eos # Car Detailer 01/18/17 03:30 Baso # Car Detailer 01/18/17 03:30 Add Manual Diff Complete 01/18/17 03:30 Total Counted 100 01/18/17 03:30 Seg Neutrophils % Car Detailer 01/18/17 03:30 Seg Neuts % (Manual) 48.0 % (40.0-70.0) 01/18/17 03:30 Band Neutrophils % 16.0 % 01/18/17 03:30 Lymphocytes % (Manual) 12.0 % (13.4-35.0) L 01/18/17 03:30 Reactive Lymphs % (Man) 0 % 01/18/17 03:30 Monocytes % (Manual) 24.0 % (0.0-7.3) H 01/18/17 03:30 Eosinophils % (Manual) 0 % (0.0-4.3) 01/18/17 03:30 Basophils % (Manual) 0 % (0.0-1.8) 01/18/17 03:30 Metamyelocytes % 0 % 01/18/17 03:30 Myelocytes % 0 % 01/18/17 03:30 Promyelocytes % 0 % 01/18/17 03:30 Blast Cells % 0 % 01/18/17 03:30 Nucleated RBC % Not Reportable 01/18/17 03:30 Seg Neutrophils # Car Detailer 01/18/17 03:30 Seg Neutrophils # Man 8.0 K/mm3 (1.8-7.7) H 01/18/17 03:30 Band Neutrophils # 2.7 K/mm3 01/18/17 03:30 Lymphocytes # (Manual) 2.0 K/mm3 (1.2-5.4) 01/18/17 03:30 Abs React Lymphs (Man) 0.0 K/mm3 01/18/17 03:30 Monocytes # (Manual) 4.0 K/mm3 (0.0-0.8) H 01/18/17 03:30 Eosinophils # (Manual) 0.0 K/mm3 (0.0-0.4) 01/18/17 03:30 Basophils # (Manual) 0.0 K/mm3 (0.0-0.1) 01/18/17 03:30 Metamyelocytes # 0.0 K/mm3 01/18/17 03:30 Myelocytes # 0.0 K/mm3 01/18/17 03:30 Promyelocytes # 0.0 K/mm3 01/18/17 03:30 Blast Cells # 0.0 K/mm3 01/18/17 03:30 WBC Morphology Not Reportable 01/18/17 03:30 Hypersegmented Neuts Not Reportable 01/18/17 03:30 Hyposegmented Neuts Not Reportable 01/18/17 03:30 Hypogranular Neuts Not Reportable 01/18/17 03:30 Smudge Cells Not Reportable 01/18/17 03:30 Toxic Granulation Not Reportable 01/18/17 03:30 Toxic Vacuolation Not Reportable 01/18/17 03:30 Dohle Bodies Not Reportable 01/18/17 03:30 Pelger-Huet Anomaly Not Reportable 01/18/17 03:30 Reid Rods Not Reportable 01/18/17 03:30 Platelet Estimate Consistent w auto 01/18/17 03:30 Clumped Platelets Not Reportable 01/18/17 03:30 Plt Clumps, EDTA Not Reportable 01/18/17 03:30 Large Platelets Not Reportable 01/18/17 03:30 Giant Platelets Not Reportable 01/18/17 03:30 Platelet Satelliting Not Reportable 01/18/17 03:30 Plt Morphology Comment Not Reportable 01/18/17 03:30 RBC Morphology Not Reportable 01/18/17 03:30 Dimorphic RBCs Not Reportable 01/18/17 03:30 Polychromasia Not Reportable 01/18/17 03:30 Hypochromasia Not Reportable 01/18/17 03:30 Poikilocytosis Not Reportable 01/18/17 03:30 Anisocytosis 1+ 01/18/17 03:30 Microcytosis Not Reportable 01/18/17 03:30 Macrocytosis Not Reportable 01/18/17 03:30 Spherocytes Not Reportable 01/18/17 03:30 Pappenheimer Bodies Not Reportable 01/18/17 03:30 Sickle Cells Not Reportable 01/18/17 03:30 Target Cells Not Reportable 01/18/17 03:30 Tear Drop Cells Not Reportable 01/18/17 03:30 Ovalocytes Not Reportable 01/18/17 03:30 Helmet Cells Not Reportable 01/18/17 03:30 [place] Bodies Not Reportable 01/18/17 03:30 [place] Rings Not Reportable 01/18/17 03:30 [place] Cells Not Reportable 01/18/17 03:30 Bite Cells Not Reportable 01/18/17 03:30 Crenated Cell Not Reportable 01/18/17 03:30 Elliptocytes Not Reportable 01/18/17 03:30 Acanthocytes (Spur) Not Reportable 01/18/17 03:30 Rouleaux Not Reportable 01/18/17 03:30 Hemoglobin C Crystals Not Reportable 01/18/17 03:30 Schistocytes Not Reportable 01/18/17 03:30 Malaria parasites Not Reportable 01/18/17 03:30 Neal Bodies Not Reportable 01/18/17 03:30 Hem Pathologist Commnt No 01/18/17 03:30 POC ABG pH 7.377 (7.35-7.45) 01/18/17 14:25 POC ABG pCO2 43.0 (35-45) 01/18/17 14:25 POC ABG pO2 87 (80-105) 01/18/17 14:25 POC ABG HCO3 25.3 01/18/17 14:25 POC ABG Total CO2 27 01/18/17 14:25 POC ABG O2 Sat 96 01/18/17 14:25 POC ABG Base Excess 0 01/18/17 14:25 FiO2 2 % 01/18/17 14:25 Sodium 139 mmol/L (137-145) 01/19/17 04:15 Potassium 4.1 mmol/L (3.6-5.0) 01/19/17 04:15 Chloride 100.7 mmol/L (98-107) 01/19/17 04:15 Carbon Dioxide 21 mmol/L (22-30) L 01/19/17 04:15 Anion Gap 21 mmol/L 01/19/17 04:15 BUN 16 mg/dL (9-20) 01/19/17 04:15 Creatinine 0.9 mg/dL (0.8-1.5) D 01/19/17 04:15 Estimated GFR > 60 ml/min 01/19/17 04:15 BUN/Creatinine Ratio 17.77 % 01/19/17 04:15 Glucose 85 mg/dL (75-100) 01/19/17 04:15 POC Glucose 135 (70-105) H 01/19/17 21:14 Lactic Acid 5.40 mmol/L (0.7-2.0) H* 01/19/17 04:15 Calcium 9.4 mg/dL (8.4-10.2) 01/19/17 04:15 Total Bilirubin 0.80 mg/dL (0.1-1.2) 01/19/17 04:15 AST 79 units/L (5-40) H 01/19/17 04:15 ALT 24 units/L (7-56) 01/19/17 04:15 Alkaline Phosphatase 173 units/L (35-129) H 01/19/17 04:15 Troponin T < 0.010 ng/mL (0.00-0.029) 01/18/17 03:30 C-Reactive Protein 40.40 mg/dL (0.00-1.30) H 01/18/17 03:30 Total Protein 6.6 g/dL (6.3-8.2) 01/19/17 04:15 Albumin 2.1 g/dL (3.9-5) L 01/19/17 04:15 Albumin/Globulin Ratio 0.5 % 01/19/17 04:15 Lipase 10 units/L (13-60) L 01/18/17 03:30 Urine Color Delia (Yellow) 01/18/17 06:49 Urine Turbidity Clear (Clear) 01/18/17 06:49 Urine pH 5.0 (5.0-7.0) 01/18/17 06:49 Ur Specific [place] 1.025 (1.003-1.030) 01/18/17 06:49 Urine Protein 100 mg/dl mg/dL (Negative) 01/18/17 06:49 Urine Glucose (UA) 50 mg/dL (Negative) 01/18/17 06:49 Urine Ketones Tr mg/dL (Negative) 01/18/17 06:49 Urine Blood Neg (Negative) 01/18/17 06:49 Urine Nitrite Neg (Negative) 01/18/17 06:49 Urine Bilirubin Neg (Negative) 01/18/17 06:49 Urine Urobilinogen 2.0 mg/dL (<2.0) 01/18/17 06:49 Ur Leukocyte Esterase Tr (Negative) 01/18/17 06:49 Urine WBC (Auto) 11.0 /HPF (0.0-6.0) H 01/18/17 06:49 Urine RBC (Auto) 4.0 /HPF (0.0-6.0) 01/18/17 06:49 U Epithel Cells (Auto) 1.0 /HPF (0-13.0) 01/18/17 06:49 Urine Mucus Few /HPF 01/18/17 06:49 Blood Type O POSITIVE 01/18/17 07:47 Antibody Screen TNR 01/18/17 07:47 KASSIDY Antibody Screen Negative 01/18/17 07:47
[2017-01-20] MEDS: ZOSYN/NS 4.5GM/100ML 4.5 GM/100 ML VIAL IV SCH ×2 (05:06→13:48)
[2017-01-20] MEDS: D5NS 1,000 ML IV SCH ×2 (05:06→22:15)
--- NOTE | 2017-01-20 08:02 | Event Note ---
Date: 01/20/17 I had the opportunity to review the patients admission at [facility] and he was admitted for an intra-abdominal abcess, he was seen by two surgeons, a Dr. Arenas Gen Surgeon and Dr. Blackwell (sp?), colon and rectal surgeon, and turned down for surgery, [facility] conservative management in view of end stage / terminal cancer, family wanted at that time to be seen by Dr. Stewart (Gen Surgeon) who performed his original surgery at [facility] 08/09. Please consult Dr. Stewart, and I will sign off since I really have nothing to offer this patient.
[2017-01-20 08:24] LABS: Hematocrit 26.8 % (35.5-45.6); Hemoglobin 8.5 gm/dl (11.8-15.2); Mean Corpuscular HGB Conc 32 % (32-34); Mean Corpuscular Hemoglobin 28 pg (28-32); Mean Corpuscular Volume 88 fl (84-94); Platelet Count 260 K/mm3 (140-440); Red Blood Count 3.05 M/mm3 (3.65-5.03); Red Cell Distribution Width 19.4 % (13.2-15.2)
[2017-01-20 08:47] LABS: Alanine Aminotransferase 20 units/L (7-56); Albumin/Globulin Ratio 0.4 %; Alkaline Phosphatase 225 units/L (35-129); Anion Gap 20 mmol/L; BUN/Creatinine Ratio 13.33; Blood Urea Nitrogen 8 mg/dL (9-20); Calcium 10.4 mg/dL (8.4-10.2); Carbon Dioxide 22 mmol/L (22-30); Chloride 100.6 mmol/L (98-107); Glucose 110 mg/dL (75-100); Potassium 3.7 mmol/L (3.6-5.0); Sodium 139 mmol/L (137-145); Total Protein 6.7 g/dL (6.3-8.2)
[2017-01-20] MEDS: MIRALAX 3350 PO SCH (09:09)
[2017-01-20] MEDS: VANCOMYCIN 750 MG in NACL 0.9% 250ML 250 ML IV SCH (09:12)
--- NOTE | 2017-01-20 14:01 | Progress Note ---
Assessment and Plan Assessment and plan: Patient is a 51-year-old male with hx of Metastatic colon CA s/p Colon resection , on Chemotherapy with last chemo on 12/31/16 presenting with fever and weakness. Patient is accompanied by the informs me that he has progressively declined healthwise. Patient was recently seen in follow-up abdominal pain at [facility] on 01/10/2017 was diagnosed with an abdominal abscess there was no intervention done at that time, sure if any antibiotics was given to the patient and discharge. The informs me that she did not want them doing any procedure because she wanted his primary surgeon Dr. Reed asked to see her. Unfortunately has continued to have worsening weakness and fever at home which was recorded at 39.6 but a . The patient is severely weak unable to answer any question except muttering a few words. They deny any diarrhea, nausea, vomiting, chest pain, headaches, shortness of breath or cough. Abdominal pain still persists this at 3/10 in intensity with no aggravating factors. The patient has been unable to eat due to poor appetite for the last 1 week. On admission to the ER patient was noted to have a blood sugar of 53. Systolic blood pressure was also noted to be in the mid 80s. 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 * Continue vancomycin and Zosyn, check blood culture, urine culture sputum cultures * Surgical, Pulmonary and ID input noted * Good urine output. D/C Perez. * Pain control * Obtain records from [facility] * Discussed extensively with patient and sister, Hospice requested. will discuss with oncologist in AM * DVT and GI prophylaxis * Poor prognosis * Anticipate discharge in am. History Interval history: Patient seen and examined today in no acute distress. No further fever. Hospitalist Physical - Physical exam Narrative exam: VITAL SIGNS: Reviewed. GENERAL: The patient appeared markedly cachectic normally developed. Vital signs as documented. HEAD: No signs of head trauma. Temporal wasting EYES: Pupils are equal. Extraocular motions intact. EARS: Hearing grossly intact. MOUTH: Oropharynx is normal. NECK: No adenopathy, no JVD. CHEST: Chest with clear breath sounds bilaterally. No wheezes, rales, or rhonchi. CARDIAC: Regular rate and rhythm. S1 and S2, without murmurs, gallops, or rubs. VASCULAR: No Edema. Peripheral pulses normal and equal in all extremities. ABDOMEN: Scaphoid, Soft, without detectable tenderness. No rebound or guarding, and no masses palpated. Bowel Sounds normal. MUSCULOSKELETAL: Good range of motion of all major joints. Extremities without clubbing, cyanosis or edema. NEUROLOGIC EXAM: Alert and oriented x 3. No focal sensory or strength deficits. Speech normal. Follows commands. PSYCHIATRIC: Mood normal. SKIN: No rash or lesions. - Constitutional Vitals: Temp Pulse Resp BP Pulse Ox 99.1 F 102 H 22 120/76 94 01/20/17 08:00 01/20/17 08:00 01/20/17 08:00 01/20/17 08:00 01/20/17 08:00 General appearance: Present: no acute distress, cachectic Results - Labs CBC & Chem 7: 01/20/17 08:01 01/20/17 08:01 Labs: Laboratory Last Values WBC 11.0 K/mm3 (4.5-11.0) 01/20/17 08:01 RBC 3.05 M/mm3 (3.65-5.03) L 01/20/17 08:01 Hgb 8.5 gm/dl (11.8-15.2) L 01/20/17 08:01 Hct 26.8 % (35.5-45.6) L 01/20/17 08:01 MCV 88 fl (84-94) 01/20/17 08:01 MCH 28 pg (28-32) 01/20/17 08:01 MCHC 32 % (32-34) 01/20/17 08:01 RDW 19.4 % (13.2-15.2) H 01/20/17 08:01 Plt Count 260 K/mm3 (140-440) 01/20/17 08:01 Lymph % (Auto) Ap Operator 01/18/17 03:30 [place] % (Auto) Ap Operator 01/18/17 03:30 Eos % (Auto) Ap Operator 01/18/17 03:30 Baso % (Auto) Ap Operator 01/18/17 03:30 Lymph # Ap Operator 01/18/17 03:30 [place] # Ap Operator 01/18/17 03:30 Eos # Ap Operator 01/18/17 03:30 Baso # Ap Operator 01/18/17 03:30 Add Manual Diff Complete 01/18/17 03:30 Total Counted 100 01/18/17 03:30 Seg Neutrophils % Ap Operator 01/18/17 03:30 Seg Neuts % (Manual) 48.0 % (40.0-70.0) 01/18/17 03:30 Band Neutrophils % 16.0 % 01/18/17 03:30 Lymphocytes % (Manual) 12.0 % (13.4-35.0) L 01/18/17 03:30 Reactive Lymphs % (Man) 0 % 01/18/17 03:30 Monocytes % (Manual) 24.0 % (0.0-7.3) H 01/18/17 03:30 Eosinophils % (Manual) 0 % (0.0-4.3) 01/18/17 03:30 Basophils % (Manual) 0 % (0.0-1.8) 01/18/17 03:30 Metamyelocytes % 0 % 01/18/17 03:30 Myelocytes % 0 % 01/18/17 03:30 Promyelocytes % 0 % 01/18/17 03:30 Blast Cells % 0 % 01/18/17 03:30 Nucleated RBC % Not Reportable 01/18/17 03:30 Seg Neutrophils # Ap Operator 01/18/17 03:30 Seg Neutrophils # Man 8.0 K/mm3 (1.8-7.7) H 01/18/17 03:30 Band Neutrophils # 2.7 K/mm3 01/18/17 03:30 Lymphocytes # (Manual) 2.0 K/mm3 (1.2-5.4) 01/18/17 03:30 Abs React Lymphs (Man) 0.0 K/mm3 01/18/17 03:30 Monocytes # (Manual) 4.0 K/mm3 (0.0-0.8) H 01/18/17 03:30 Eosinophils # (Manual) 0.0 K/mm3 (0.0-0.4) 01/18/17 03:30 Basophils # (Manual) 0.0 K/mm3 (0.0-0.1) 01/18/17 03:30 Metamyelocytes # 0.0 K/mm3 01/18/17 03:30 Myelocytes # 0.0 K/mm3 01/18/17 03:30 Promyelocytes # 0.0 K/mm3 01/18/17 03:30 Blast Cells # 0.0 K/mm3 01/18/17 03:30 WBC Morphology Not Reportable 01/18/17 03:30 Hypersegmented Neuts Not Reportable 01/18/17 03:30 Hyposegmented Neuts Not Reportable 01/18/17 03:30 Hypogranular Neuts Not Reportable 01/18/17 03:30 Smudge Cells Not Reportable 01/18/17 03:30 Toxic Granulation Not Reportable 01/18/17 03:30 Toxic Vacuolation Not Reportable 01/18/17 03:30 Dohle Bodies Not Reportable 01/18/17 03:30 Pelger-Huet Anomaly Not Reportable 01/18/17 03:30 Reid Rods Not Reportable 01/18/17 03:30 Platelet Estimate Consistent w auto 01/18/17 03:30 Clumped Platelets Not Reportable 01/18/17 03:30 Plt Clumps, EDTA Not Reportable 01/18/17 03:30 Large Platelets Not Reportable 01/18/17 03:30 Giant Platelets Not Reportable 01/18/17 03:30 Platelet Satelliting Not Reportable 01/18/17 03:30 Plt Morphology Comment Not Reportable 01/18/17 03:30 RBC Morphology Not Reportable 01/18/17 03:30 Dimorphic RBCs Not Reportable 01/18/17 03:30 Polychromasia Not Reportable 01/18/17 03:30 Hypochromasia Not Reportable 01/18/17 03:30 Poikilocytosis Not Reportable 01/18/17 03:30 Anisocytosis 1+ 01/18/17 03:30 Microcytosis Not Reportable 01/18/17 03:30 Macrocytosis Not Reportable 01/18/17 03:30 Spherocytes Not Reportable 01/18/17 03:30 Pappenheimer Bodies Not Reportable 01/18/17 03:30 Sickle Cells Not Reportable 01/18/17 03:30 Target Cells Not Reportable 01/18/17 03:30 Tear Drop Cells Not Reportable 01/18/17 03:30 Ovalocytes Not Reportable 01/18/17 03:30 Helmet Cells Not Reportable 01/18/17 03:30 [place] Bodies Not Reportable 01/18/17 03:30 [place] Rings Not Reportable 01/18/17 03:30 [place] Cells Not Reportable 01/18/17 03:30 Bite Cells Not Reportable 01/18/17 03:30 Crenated Cell Not Reportable 01/18/17 03:30 Elliptocytes Not Reportable 01/18/17 03:30 Acanthocytes (Spur) Not Reportable 01/18/17 03:30 Rouleaux Not Reportable 01/18/17 03:30 Hemoglobin C Crystals Not Reportable 01/18/17 03:30 Schistocytes Not Reportable 01/18/17 03:30 Malaria parasites Not Reportable 01/18/17 03:30 Neal Bodies Not Reportable 01/18/17 03:30 Hem Pathologist Commnt No 01/18/17 03:30 POC ABG pH 7.377 (7.35-7.45) 01/18/17 14:25 POC ABG pCO2 43.0 (35-45) 01/18/17 14:25 POC ABG pO2 87 (80-105) 01/18/17 14:25 POC ABG HCO3 25.3 01/18/17 14:25 POC ABG Total CO2 27 01/18/17 14:25 POC ABG O2 Sat 96 01/18/17 14:25 POC ABG Base Excess 0 01/18/17 14:25 FiO2 2 % 01/18/17 14:25 Sodium 139 mmol/L (137-145) 01/20/17 08:01 Potassium 3.7 mmol/L (3.6-5.0) 01/20/17 08:01 Chloride 100.6 mmol/L (98-107) 01/20/17 08:01 Carbon Dioxide 22 mmol/L (22-30) 01/20/17 08:01 Anion Gap 20 mmol/L 01/20/17 08:01 BUN 8 mg/dL (9-20) L 01/20/17 08:01 Creatinine 0.6 mg/dL (0.8-1.5) L 01/20/17 08:01 Estimated GFR > 60 ml/min 01/20/17 08:01 BUN/Creatinine Ratio 13.33 % 01/20/17 08:01 Glucose 110 mg/dL (75-100) H 01/20/17 08:01 POC Glucose 117 (70-105) H 01/20/17 11:25 Lactic Acid 5.30 mmol/L (0.7-2.0) H* 01/20/17 08:01 Calcium 10.4 mg/dL (8.4-10.2) H 01/20/17 08:01 Total Bilirubin 0.90 mg/dL (0.1-1.2) 01/20/17 08:01 AST 55 units/L (5-40) H 01/20/17 08:01 ALT 20 units/L (7-56) 01/20/17 08:01 Alkaline Phosphatase 225 units/L (35-129) H 01/20/17 08:01 Troponin T < 0.010 ng/mL (0.00-0.029) 01/18/17 03:30 C-Reactive Protein 40.40 mg/dL (0.00-1.30) H 01/18/17 03:30 Total Protein 6.7 g/dL (6.3-8.2) 01/20/17 08:01 Albumin 2.0 g/dL (3.9-5) L 01/20/17 08:01 Albumin/Globulin Ratio 0.4 % 01/20/17 08:01 Lipase 10 units/L (13-60) L 01/18/17 03:30 Urine Color Delia (Yellow) 01/18/17 06:49 Urine Turbidity Clear (Clear) 01/18/17 06:49 Urine pH 5.0 (5.0-7.0) 01/18/17 06:49 Ur Specific [place] 1.025 (1.003-1.030) 01/18/17 06:49 Urine Protein 100 mg/dl mg/dL (Negative) 01/18/17 06:49 Urine Glucose (UA) 50 mg/dL (Negative) 01/18/17 06:49 Urine Ketones Tr mg/dL (Negative) 01/18/17 06:49 Urine Blood Neg (Negative) 01/18/17 06:49 Urine Nitrite Neg (Negative) 01/18/17 06:49 Urine Bilirubin Neg (Negative) 01/18/17 06:49 Urine Urobilinogen 2.0 mg/dL (<2.0) 01/18/17 06:49 Ur Leukocyte Esterase Tr (Negative) 01/18/17 06:49 Urine WBC (Auto) 11.0 /HPF (0.0-6.0) H 01/18/17 06:49 Urine RBC (Auto) 4.0 /HPF (0.0-6.0) 01/18/17 06:49 U Epithel Cells (Auto) 1.0 /HPF (0-13.0) 01/18/17 06:49 Urine Mucus Few /HPF 01/18/17 06:49 Blood Type O POSITIVE 01/18/17 07:47 Antibody Screen TNR 01/18/17 07:47 KASSIDY Antibody Screen Negative 01/18/17 07:47
--- NOTE | 2017-01-20 15:14 | Progress Note ---
Assessment and Plan - Patient Problems (1) Septic shock Current Visit: Yes Status: Acute Plan to address problem: Intermittent fevers with known intra-abdominal abscess. Hemodynamically stable. (2) Intra-abdominal abscess Current Visit: Yes Status: Acute Plan to address problem: Uncertain surgical or percutaneous drainage plans. Recommend empiric Cefepime/ Flagyl for now. Antibiotic adjustments per result of any fluid cultures. Empiric Levaquin 750mg daily/ Flagyl 500mg tid may be an option when patient is otherwise ready for discharge. A total of 14 days may be reasonable based on size of collection (17 mm in largest diameter). (3) Colon cancer Current Visit: Yes Status: Acute Qualifiers: Colon location: unspecified part of colon Qualified Code(s): C18.9 - Malignant neoplasm of colon, unspecified Subjective Date of service: 01/20/17 Principal diagnosis: Fever; Intra-Abdominal Abscess Interval history: Episodes of loose BMs today. Objective - Constitutional Vitals: Vital Signs Temp Pulse Resp BP Pulse Ox 99.1 F 102 H 22 120/76 94 01/20/17 08:00 01/20/17 08:00 01/20/17 08:00 01/20/17 08:00 01/20/17 08:00 Temperature -Last 24 Hours Temperature 99.1 F Temperature 99.5 F Temperature 99.5 F General appearance: Present: no acute distress - EENT Eyes: no scleral icterus - Neck Neck: supple - Respiratory Respiratory effort: normal Respiratory: bilateral: CTA - Cardiovascular Rhythm: regular Extremities: No edema - Gastrointestinal General gastrointestinal: Present: soft, tender, non-distended - Integumentary Integumentary: clear, no jaundice - Labs CBC & Chem 7: 01/20/17 08:01 01/20/17 08:01 Labs: Abnormal lab results 01/19/17 01/19/17 01/20/17 Range/Units 16:10 21:14 05:47 RBC (3.65-5.03) M/mm3 Hgb (11.8-15.2) gm/dl Hct (35.5-45.6) % RDW (13.2-15.2) % BUN (9-20) mg/dL Creatinine (0.8-1.5) mg/dL Glucose (75-100) mg/dL POC Glucose 171 H 135 H 120 H (70-105) Lactic Acid (0.7-2.0) mmol/L Calcium (8.4-10.2) mg/dL AST (5-40) units/L Alkaline Phosphatase (35-129) units/L Albumin (3.9-5) g/dL 01/20/17 01/20/17 01/20/17 Range/Units 08:01 08:01 08:01 RBC 3.05 L (3.65-5.03) M/mm3 Hgb 8.5 L (11.8-15.2) gm/dl Hct 26.8 L (35.5-45.6) % RDW 19.4 H (13.2-15.2) % BUN 8 L (9-20) mg/dL Creatinine 0.6 L (0.8-1.5) mg/dL Glucose 110 H (75-100) mg/dL POC Glucose (70-105) Lactic Acid 5.30 H* (0.7-2.0) mmol/L Calcium 10.4 H (8.4-10.2) mg/dL AST 55 H (5-40) units/L Alkaline Phosphatase 225 H (35-129) units/L Albumin 2.0 L (3.9-5) g/dL 01/20/17 Range/Units 11:25 RBC (3.65-5.03) M/mm3 Hgb (11.8-15.2) gm/dl Hct (35.5-45.6) % RDW (13.2-15.2) % BUN (9-20) mg/dL Creatinine (0.8-1.5) mg/dL Glucose (75-100) mg/dL POC Glucose 117 H (70-105) Lactic Acid (0.7-2.0) mmol/L Calcium (8.4-10.2) mg/dL AST (5-40) units/L Alkaline Phosphatase (35-129) units/L Albumin (3.9-5) g/dL Microbiology 01/18/17 Unknown Urine,Clean Catch Urine Culture - Final 01/18/17 07:04 Peripheral/Venous Blood Culture - Preliminary NO GROWTH AFTER 48 HOURS 01/18/17 07:44 Peripheral/Venous Blood Culture - Preliminary NO GROWTH AFTER 24 HOURS
[2017-01-20] MEDS: DILAUDID IV PRN ×2 (16:26→23:17)
[2017-01-20] MEDS: FLAGYL 500 MG/100 ML 500 MG/100 ML BAG IV SCH ×2 (16:26→23:21)
[2017-01-20] MEDS: MAXIPIME/NS 1 GM/100 ML 1 GM/100 ML BAG IV SCH ×2 (17:32→22:15)
--- NOTE | 2017-01-20 18:24 | Progress Note ---
Assessment and Plan Patient resting on 2.5 litres O2.O2 saturation 94%. No complaint of chest pain, shortness of breath or cough. - Patient Problems (1) Acute febrile illness Current Visit: No Status: Acute Plan to address problem: Patient has metastatic colon CA. Intra abdominal abscess and Fistule reported on abdominal CAT scan. Patient is on zosyn and vancomycin. (2) Atelectasis of both lungs Current Visit: No Status: Acute Plan to address problem: Chest xray reported unremarkable. (3) Acute renal failure Current Visit: Yes Status: Acute Qualifiers: Acute renal failure type: A Plan to address problem: Management as per nephrology. (4) Septic shock Current Visit: Yes Status: Acute Plan to address problem: Patient is on Zosyn and vancomycin. (5) Colon cancer Current Visit: Yes Status: Acute Qualifiers: Colon location: unspecified part of colon Qualified Code(s): C18.9 - Malignant neoplasm of colon, unspecified Plan to address problem: Management as per Gastroenterology and oncology. Subjective Date of service: 01/20/17 Principal diagnosis: Fever; Intra-Abdominal Abscess Interval history: Patient resting on 2.5 litres O2.O2 saturation 94%. No complaint of chest pain, shortness of breath or cough. Objective Vital Signs - 12hr 01/20/17 01/20/17 01/20/17 07:46 08:00 15:39 Temperature 99.1 F 98 F Pulse Rate 102 H 102 H Respiratory 22 18 Rate Blood Pressure 120/76 138/84 O2 Sat by Pulse 94 94 94 Oximetry Constitutional: no acute distress, alert Eyes: non-icteric ENT: oropharynx moist Neck: supple, no lymphadenopathy Ascultation: Bilateral: clear Cardiovascular: regular rate and rhythm Gastrointestinal: hypoactive bowel sounds Integumentary: normal Extremities: no cyanosis, no edema Neurologic: normal mental status, non-focal exam, pupils equal and round, CN II- XII normal Psychiatric: mood appropriate CBC and BMP: 01/20/17 08:01 01/20/17 08:01 ABG, PT/INR, D-dimer: ABG POC ABG pH 7.377 (7.35-7.45) 01/18/17 14:25 POC ABG pCO2 43.0 (35-45) 01/18/17 14:25 POC ABG pO2 87 (80-105) 01/18/17 14:25 POC ABG HCO3 25.3 01/18/17 14:25 POC ABG Total CO2 27 01/18/17 14:25 POC ABG O2 Sat 96 01/18/17 14:25 Abnormal lab findings: Abnormal Labs 01/18/17 01/18/17 01/19/17 17:40 23:35 04:15 WBC 11.9 H RBC 2.97 L Hgb 8.1 L Hct 25.8 L MCH 27 L RDW 19.6 H Carbon Dioxide BUN Creatinine Glucose POC Glucose 109 H 130 H Lactic Acid Calcium AST Alkaline Phosphatase Albumin 01/19/17 01/19/17 01/19/17 04:15 04:15 05:24 WBC RBC Hgb Hct MCH RDW Carbon Dioxide 21 L BUN Creatinine Glucose POC Glucose 107 H Lactic Acid 5.40 H* Calcium AST 79 H Alkaline Phosphatase 173 H Albumin 2.1 L 01/19/17 01/19/17 01/19/17 12:19 16:10 21:14 WBC RBC Hgb Hct MCH RDW Carbon Dioxide BUN Creatinine Glucose POC Glucose 135 H 171 H 135 H Lactic Acid Calcium AST Alkaline Phosphatase Albumin 01/20/17 01/20/17 01/20/17 05:47 08:01 08:01 WBC RBC 3.05 L Hgb 8.5 L Hct 26.8 L MCH RDW 19.4 H Carbon Dioxide BUN 8 L Creatinine 0.6 L Glucose 110 H POC Glucose 120 H Lactic Acid Calcium 10.4 H AST 55 H Alkaline Phosphatase 225 H Albumin 2.0 L 01/20/17 01/20/17 01/20/17 08:01 11:25 16:42 WBC RBC Hgb Hct MCH RDW Carbon Dioxide BUN Creatinine Glucose POC Glucose 117 H 131 H Lactic Acid 5.30 H* Calcium AST Alkaline Phosphatase Albumin
[2017-01-21] MEDS: FLAGYL 500 MG/100 ML 500 MG/100 ML BAG IV SCH (05:05)
[2017-01-21] MEDS: DILAUDID IV PRN (05:43)
[2017-01-21] MEDS: MAXIPIME/NS 1 GM/100 ML 1 GM/100 ML BAG IV SCH (06:14)
[2017-01-21 08:22] VITALS: BP 124/72
--- NOTE | 2017-01-21 09:37 | XRay Report ---
ROUTINE CHEST, TWO VIEWS: HISTORY: Follow up atelectasis. There is poor inspiration. Bibasilar atelectatic changes have increased slightly since 01/18/17. The upper lung zones remain clear. Heart size is within normal limits. The right [id number] remains in the same position. No acute bony abnormality. IMPRESSION: Mild increase in the bibasilar atelectatic changes.
--- NOTE | 2017-01-21 11:06 | Discharge Summary ---
Providers - Providers Date of Admission: 01/18/17 08:52 Attending physician: NOHEMY KAUFFMAN MD 01/18/17 09:23 Consult to Dietitian/Nutrition [CONS] Routine Physician Instructions: malnutrition Reason For Exam: Reason for Consult: Malnutrition 01/20/17 11:43 Consult to Physician [CONS] Urgent Consulting Provider: MELITON STEWART Reason For Exam: patient known to Dr. Stewart Place consult to:: Dr. Stewart Notified:: Clotilde Was contact made?: Yes If yes, spoke with:: Clotilde Time called:: 11:00 Primary care physician: [employer] Hospitalization Reason for admission: septic shock Condition: Stable Hospital course: Patient is a 51-year-old male with hx of Metastatic colon CA s/p Colon resection , on Chemotherapy with last chemo on 12/31/16 presenting with fever and weakness. Patient is accompanied by the informs me that he has progressively declined healthwise. Patient was recently seen in follow-up abdominal pain at [facility] on 01/10/2017 was diagnosed with an abdominal abscess there was no intervention done at that time, sure if any antibiotics was given to the patient and discharge. The informs me that she did not want them doing any procedure because she wanted his primary surgeon Dr. Reed asked to see her. Unfortunately has continued to have worsening weakness and fever at home which was recorded at 39.6 but a . The patient is severely weak unable to answer any question except muttering a few words. They deny any diarrhea, nausea, vomiting, chest pain, headaches, shortness of breath or cough. Abdominal pain still persists this at 3/10 in intensity with no aggravating factors. The patient has been unable to eat due to poor appetite for the last 1 week. On admission to the ER patient was noted to have a blood sugar of 53. Systolic blood pressure was also noted to be in the mid 80s. Patient was admitted to intensive care unit started on pressors which was shortly discontinued as blood pressure improved with boluses of fluids. Surgery was consulted and evaluated the patient and please see the documentation below "I had the opportunity to review the patients admission at [facility] and he was admitted for an intra-abdominal abcess, he was seen by two surgeons, a Dr. Dagoberto Atwood Surgeon and Dr. Blackwell (sp?), colon and rectal surgeon, and turned down for surgery, recc conservative management in view of end stage / terminal cancer, family wanted at that time to be seen by Dr. Stewart (Gen Surgeon) who performed his original surgery at [facility] 08/[address]. [address] Stewart, and I will sign off since I really have nothing to offer this patient." The patient was also seen by visitor services coordinator and also by infectious disease doctor who started on empiric antibiotic coverage. Of this massive discussion with the family hospice was agreed upon by the wants to institute hospice when they get home. He has remained afebrile. And wants to be discharged to follow- up with his primary surgeon. He also intends to follow-up at [facility] for second opinion prior to ultimately go on hospice as they would like to get radiation therapy with hospice also. There is no surgical plan at this time a CT shows improvement. He'll be discharged on 14 days of empiric antibiotic with Levaquin and Flagyl side effects of all medications discussed in detail. 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 * Peritoneal irritation eval for Possible Peritonitis * Acute cystitis * Metastatic Colon Cancer * Acute Kidney Failure secondary vasomotor nephropathy- resolved * Dehydration * Anemia secondary to colon Ca * Hypoglycemia * Failure to thrive * Severe Protein calorie malnutrition * Poor PO intake * Intra-abdominal abscess [id number] Time spent for discharge: 35 mins Core Measure Documentation - Palliative Care Palliative Care/ Comfort Measures: Not Applicable - Core Measures Any of the following diagnoses?: none - VTE Discharge Requirements Deep Vein Thrombosis/Pulmonary Embolism Present on Admission: No Exam - Physical Exam Narrative exam: VITAL SIGNS: Reviewed. GENERAL: The patient appeared markedly cachectic normally developed. Vital signs as documented. HEAD: No signs of head trauma. Temporal wasting EYES: Pupils are equal. Extraocular motions intact. EARS: Hearing grossly intact. MOUTH: Oropharynx is normal. NECK: No adenopathy, no JVD. CHEST: Chest with clear breath sounds bilaterally. No wheezes, rales, or rhonchi. CARDIAC: Regular rate and rhythm. S1 and S2, without murmurs, gallops, or rubs. VASCULAR: No Edema. Peripheral pulses normal and equal in all extremities. ABDOMEN: Scaphoid, Soft, without detectable tenderness. No rebound or guarding, and no masses palpated. Bowel Sounds normal. MUSCULOSKELETAL: Good range of motion of all major joints. Extremities without clubbing, cyanosis or edema. NEUROLOGIC EXAM: Alert and oriented x 3. No focal sensory or strength deficits. Speech normal. Follows commands. PSYCHIATRIC: Mood normal. SKIN: No rash or lesions. - Constitutional Vitals: Temp Pulse Resp BP Pulse Ox 97.9 F 94 H 18 124/72 95 01/21/17 08:00 01/21/17 08:00 01/21/17 08:00 01/21/17 08:00 01/21/17 08:00 Plan Activity: advance as tolerated, fall precautions Special Instructions: home health RN Additional Instructions: Follow with [facility] for second opinon. Follow with radiation oncologist Follow up with: PRIMARY CAREMD [Primary Care Provider] - 3-5 Days MELITON STEWART MD [Staff Physician] - 7 Days Prescriptions: HYDROcodone/APAP 10-325 [[place] 10-325 mg TAB] 1 each PO Q6HR PRN #14 tablet PRN Reason: Pain Levofloxacin [Levaquin] 750 mg PO QDAY #14 tablet metroNIDAZOLE [Flagyl] 500 mg PO Q8HR 14 Days
[2017-01-21] MEDS: MIRALAX 3350 PO SCH (11:24)
[2017-01-21] MEDS ORDERED: TRIPLE ANTIBIOTIC TP ONE (12:30)
[2017-01-21] MEDS ORDERED: FLUSH HEPARIN IV ONE (12:31)
== END 2017-01-21 15:22 | disposition home health service (06) | DRG 871 ==
LOC: ED 03:05 → CC1 08:52 → 3A 01-19 13:21
PROVIDERS: ADMIT Internal Medicine; ATTEND Internal Medicine
PROC: 4A033R1 Measurement of Arterial Saturation, Peripheral, Percutaneous Approach (ICD-10-PCS; principal; 2017-01-18)
DX: A41.9 Sepsis, unspecified organism (principal); K65.9 Peritonitis, unspecified; N17.0 Acute kidney failure with tubular necrosis; E43 Unspecified severe protein-calorie malnutrition; L02.211 Cutaneous abscess of abdominal wall; E86.0 Dehydration; E16.2 Hypoglycemia, unspecified; R62.7 Adult failure to thrive; R65.20 Severe sepsis without septic shock; N30.00 Acute cystitis without hematuria; C18.9 Malignant neoplasm of colon, unspecified; D63.0 Anemia in neoplastic disease; C79.51 Secondary malignant neoplasm of bone; C78.7 Secondary malignant neoplasm of liver and intrahepatic bile duct; J98.11 Atelectasis; Z68.22 Body mass index [BMI] 22.0-22.9, adult; Z79.899 Other long term (current) drug therapy
CPT/HCPCS: 36415; 36600; 71010; 71020; 74176; 80053; 80202; 81001; 82140; 82803; 82962; 83690; 84484; 85007; 85025; 85027; 86140; 86850; 86900; 86901; 87040; 87086; 94760; 96374; 96375; A6250; J0692; J1170; J1200; J1642; J2543; J3370; J7030; J7042; J7050

== ENCOUNTER 2017-02-17 11:56 | Outpatient (CLI) | payer MEDICAID | END 2017-02-17 11:57 | disposition home or self-care (01) | LOC: LABHHL 11:56 | PROVIDERS: ATTEND Internal Medicine Hematology & Oncology | DX: C18.9 Malignant neoplasm of colon, unspecified (principal) | CPT/HCPCS: 36415 ==